=== PATIENT | male | born 1960 | race Caucasian/White ===

== ENCOUNTER 2017-06-21 17:46 | Emergency (ER) | payer MEDICARE, OTHER ==
[~2017-06-21] VITALS: Ht 172.7 cm; Wt 93.0 kg
[~2017-06-21 17:46] MED LIST: BUSP5TAB3 PO; CHLO100T2 PO; CITA10TA4 PO; DEPA500T3 PO; GLYB1TAB51 PO; LORT5TAB PO; METF-324 PO; PRIN10TA PO; RISP2TAB2 PO; SIMV20TA PO; TOPR50TA PO; TRAZ50TA4 PO; TYLE500T PO; WAL-10TA2 PO
[2017-06-21 17:51] VITALS: BP 156/93; PULSE 100; RESP 20; TEMP 98.2; O2SAT 100
--- NOTE | 2017-06-21 20:45 | PD ---
HPI Chief Complaint: Psychiatric Symptoms Time Seen by Provider: 19:45 Travel History International Travel<30 days: No Contact w/Intl Traveler<30days: No Traveled to known affect area: No History of Present Illness HPI Patient is a 56-year-old male brought in by his caregiver for psychiatric evaluation. Per her report he has been treated, verbally and physically aggressive towards staff. He has a history of the explosive behaviors but it has been exacerbated for the last 2 days. She states that he we'll attempt to self-harm and eat nonfood items. He has been using foul language towards -Americans staff members. Behavior escalated yesterday when he did not appropriately asked to use the phone and was given a 5 minute delay, he began to then get physically aggressive. She reports that he has a history of schizophrenia, bipolar disorder, mental retardation, anxiety, hyperlipidemia and hypertension. She reports that he has been compliant with medications. She states that his physician wanted him Castano acted yesterday but staff failed to do so so she brought him in today. He Has no physical complaints at this time. [facility]LY [facility] Past Medical History ADD: Yes Bipolar Disorder: Yes Anxiety: Yes High Cholesterol: Yes Diabetes: Yes Diminished Hearing: No Hypertension: Yes Psychiatric: Yes (DEVELOPMENTAL DELAY) Schizophrenia: Yes Past Surgical History Abdominal Surgery: Yes (HERNIA) Eye Surgery: Yes (RIGHT EYE CATARACT) Social History Alcohol Use: No Tobacco Use: No Substance Use: No Allergies-Medications (Allergen,Severity, Reaction): Coded Allergies: No Known Allergies (Verified Adverse Reaction, Unknown, 06/21/17) Reported Meds & Prescriptions Reported Meds & Active Scripts Active Reported Bisacodyl EC (Bisacodyl) 5 Mg Tabec 5 Mg PO DAILY PRN Lorazepam 1 Mg Tab 1 Mg PO DAILY PRN Seroquel (Quetiapine Fumarate) 100 Mg Tab 100 Mg PO BID Clonidine (Clonidine HCl) 0.1 Mg Tab 0.1 Mg PO BID Depakote ER (Divalproex Sodium) 500 Mg Kelin 500 Mg PO BID Chlorpromazine (Chlorpromazine HCl) 200 Mg Tab 200 Mg PO BID PRN Buspirone (Buspirone HCl) 30 Mg Tab 30 Mg PO TID Risperidone 4 Mg Tab 4 Mg PO TID Claritin (Loratadine) 10 Mg Cap 10 Mg PO DAILYHS Simvastatin 20 Mg Tab 20 Mg PO DAILYHS Magnesium Citrate Liq (Magnesium Citrate) 300 Ml Liq 150 Ml PO DIRECTED Fransico Perry Cough & Chest Liquid (Guaifenesin/Dextromethorphan) 100 Mg-10 Mg/5 Ml Syrup 10 Ml PO Q6HR Milk of Magnesia Liq (Magnesium Hydroxide) 400 Mg/5 Ml Susp Ml PO Lisinopril 5 Mg Tab 5 Mg PO DAILY Review of Systems Except as stated in HPI: all other systems reviewed are Neg Psychiatric: Positive: Mood Disorder Physical Exam Narrative GENERAL: Well-developed, well-nourished, alert male. Resting comfortably in no acute distress. SKIN: Warm and dry. HEAD: Atraumatic. Normocephalic. EYES: Pupils equal and round. No scleral icterus. No injection or drainage. ENT: No nasal bleeding or discharge. Mucous membranes pink and moist. NECK: Trachea midline. No JVD. CARDIOVASCULAR: Regular rate and rhythm. RESPIRATORY: No accessory muscle use. Clear to auscultation. Breath sounds equal bilaterally. GASTROINTESTINAL: Abdomen soft, non-tender, nondistended. Hepatic and splenic margins not palpable. MUSCULOSKELETAL: Extremities without clubbing, cyanosis, or edema. No obvious deformities. NEUROLOGICAL: Awake and alert. No obvious cranial nerve deficits. Motor grossly within normal limits. Five out of 5 muscle strength in the arms and legs. Normal speech. PSYCHIATRIC: Appropriate mood and affect. Data Data Last Documented VS Vital Signs Date Time Temp Pulse Resp B/P (MAP) Pulse Ox O2 Delivery O2 Flow Rate FiO2 06/21/17 17:51 98.2 100 20 156/93 (114) 100 Orders Orders Complete Blood Count With Diff (06/21/17 20:02) Comprehensive Metabolic Panel (06/21/17 20:02) Thyroid Stimulating Hormone (06/21/17 20:02) Urinalysis - C+S If Indicated (06/21/17 20:02) Psych Screen (06/21/17 20:02) Drug Screen, Random Urine (06/21/17 20:02) Valproic Acid (Depakene) (06/21/17 21:45) Risperidone (Risperdal) (06/21/17 22:00) Lorazepam (Ativan) (06/21/17 22:00) Quetiapine (Seroquel) (06/21/17 22:00) Divalproex Er (Depakote Er) (06/21/17 22:00) Labs Laboratory Tests Test 06/21/17 20:53 White Blood Count 5.1 TH/MM3 Red Blood Count 3.80 MIL/MM3 Hemoglobin 12.8 GM/DL Hematocrit 37.3 % Mean Corpuscular Volume 97.9 FL Mean Corpuscular Hemoglobin 33.7 PG Mean Corpuscular Hemoglobin Concent 34.4 % Red Cell Distribution Width 12.0 % Platelet Count 119 TH/MM3 Mean Platelet Volume 8.3 FL Neutrophils (%) (Auto) 51.3 % Lymphocytes (%) (Auto) 33.9 % Monocytes (%) (Auto) 13.7 % Eosinophils (%) (Auto) 0.7 % Basophils (%) (Auto) 0.4 % Neutrophils # (Auto) 2.6 TH/MM3 Lymphocytes # (Auto) 1.7 TH/MM3 Monocytes # (Auto) 0.7 TH/MM3 Eosinophils # (Auto) 0.0 TH/MM3 Basophils # (Auto) 0.0 TH/MM3 CBC Comment DIFF FINAL Differential Comment Urine Color YELLOW Urine Turbidity CLEAR Urine pH 6.0 Urine Specific [place] 1.017 Urine Protein TRACE mg/dL Urine Glucose (UA) NEG mg/dL Urine Ketones NEG mg/dL Urine Occult Blood NEG Urine Nitrite NEG Urine Bilirubin NEG Urine Urobilinogen LESS THAN 2.0 MG/DL Urine Leukocyte Esterase NEG Urine RBC LESS THAN 1 /hpf Urine WBC LESS THAN 1 /hpf Urine Mucus FEW /lpf Microscopic Urinalysis Comment CULT NOT INDICATED Blood Urea Nitrogen 22 MG/DL Creatinine 1.07 MG/DL Random Glucose 106 MG/DL Total Protein 6.6 GM/DL Albumin 3.1 GM/DL Calcium Level 8.7 MG/DL Alkaline Phosphatase 85 U/L Aspartate Amino Transf (AST/SGOT) 26 U/L Alanine Aminotransferase (ALT/SGPT) 31 U/L Total Bilirubin 0.3 MG/DL Sodium Level 138 MEQ/L Potassium Level 3.9 MEQ/L Chloride Level 105 MEQ/L Carbon Dioxide Level 26.9 MEQ/L Anion Gap 6 MEQ/L Estimat Glomerular Filtration Rate 71 ML/MIN Thyroid Stimulating Hormone 3rd Gen 6.510 uIU/ML Urine Opiates Screen NEG Urine Barbiturates Screen NEG Urine Amphetamines Screen NEG Urine Benzodiazepines Screen NEG Urine Cocaine Screen NEG Urine Cannabinoids Screen NEG [facility] Medical Decision Making Medical Screen Exam Complete: Yes Emergency Medical Condition: Yes Interpretation(s) Laboratory Tests Test 06/21/17 20:53 White Blood Count 5.1 TH/MM3 Red Blood Count 3.80 MIL/MM3 Hemoglobin 12.8 GM/DL Hematocrit 37.3 % Mean Corpuscular Volume 97.9 FL Mean Corpuscular Hemoglobin 33.7 PG Mean Corpuscular Hemoglobin Concent 34.4 % Red Cell Distribution Width 12.0 % Platelet Count 119 TH/MM3 Mean Platelet Volume 8.3 FL Neutrophils (%) (Auto) 51.3 % Lymphocytes (%) (Auto) 33.9 % Monocytes (%) (Auto) 13.7 % Eosinophils (%) (Auto) 0.7 % Basophils (%) (Auto) 0.4 % Neutrophils # (Auto) 2.6 TH/MM3 Lymphocytes # (Auto) 1.7 TH/MM3 Monocytes # (Auto) 0.7 TH/MM3 Eosinophils # (Auto) 0.0 TH/MM3 Basophils # (Auto) 0.0 TH/MM3 CBC Comment DIFF FINAL Differential Comment Urine Color YELLOW Urine Turbidity CLEAR Urine pH 6.0 Urine Specific [place] 1.017 Urine Protein TRACE mg/dL Urine Glucose (UA) NEG mg/dL Urine Ketones NEG mg/dL Urine Occult Blood NEG Urine Nitrite NEG Urine Bilirubin NEG Urine Urobilinogen LESS THAN 2.0 MG/DL Urine Leukocyte Esterase NEG Urine RBC LESS THAN 1 /hpf Urine WBC LESS THAN 1 /hpf Urine Mucus FEW /lpf Microscopic Urinalysis Comment CULT NOT INDICATED Blood Urea Nitrogen 22 MG/DL Creatinine 1.07 MG/DL Random Glucose 106 MG/DL Total Protein 6.6 GM/DL Albumin 3.1 GM/DL Calcium Level 8.7 MG/DL Alkaline Phosphatase 85 U/L Aspartate Amino Transf (AST/SGOT) 26 U/L Alanine Aminotransferase (ALT/SGPT) 31 U/L Total Bilirubin 0.3 MG/DL Sodium Level 138 MEQ/L Potassium Level 3.9 MEQ/L Chloride Level 105 MEQ/L Carbon Dioxide Level 26.9 MEQ/L Anion Gap 6 MEQ/L Estimat Glomerular Filtration Rate 71 ML/MIN Thyroid Stimulating Hormone 3rd Gen 6.510 uIU/ML Urine Opiates Screen NEG Urine Barbiturates Screen NEG Urine Amphetamines Screen NEG Urine Benzodiazepines Screen NEG Urine Cocaine Screen NEG Urine Cannabinoids Screen NEG Vital Signs Date Time Temp Pulse Resp B/P (MAP) Pulse Ox O2 Delivery O2 Flow Rate FiO2 2/1/18 17:51 98.2 100 20 156/93 114) 100 Differential Diagnosis Behavior disturbance versus metabolic abnormality versus UTI versus Narrative Course Patient is a 56-year-old male brought in by caregiver for psychiatric evaluation /medication adjustment. His vital signs are stable, he asks repetitive questions and needs to be redirected behaviorally. Labs and psych screening ordered and pending. Due to caregivers report of aggressive behavior and potential threat of self-harm a Castano act was initiated by my attending physician. Labs reviewed, CBC with a mild anemia, chemistry is unremarkable, TSH is elevated at 6.5., Urine drug screen is negative, urinalysis is not consistent with a urinary tract infection. Patient is medically cleared for psychiatric evaluation at this time. He should have thyroid level reassessed as outpatient. Nighttime medications ordered as previously prescribed per patient's MAR Diagnosis Primary Impression: Medical clearance for psychiatric admission Additional Impression: Abnormal thyroid blood test Condition: Stable Kylie Langford Jun 21, 2017 20:45
[2017-06-21 21:05] LABS: AUTOMATED NEUTROPHIL # 2.6 TH/MM3 (1.8-7.7); BASOPHIL % 0.4 % (0.0-2.0); EOSINOPHIL % 0.7 % (0.0-4.0); HEMATOCRIT 37.3 % (39.0-51.0); HEMOGLOBIN 12.8 GM/DL (13.0-17.0); LYMPH % 33.9 % (9.0-44.0); LYMPHOCYTE # 1.7 TH/MM3 (1.0-4.8); MEAN CELL VOLUME 97.9 FL (80.0-100.0); MEAN CORPUSCULAR HEMOGLOBIN 33.7 PG (27.0-34.0); MEAN CORPUSCULAR HGB CONC 34.4 % (32.0-36.0); MEAN PLATELET VOLUME 8.3 FL (7.0-11.0); MONO % 13.7 % (0.0-8.0); MONOCYTE # 0.7 TH/MM3 (0-0.9); NEUT % 51.3 % (16.0-70.0); PLATELET COUNT 119 TH/MM3 (150-450); WHITE BLOOD COUNT 5.1 TH/MM3 (4.0-11.0)
[2017-06-21 21:06] LABS: BILIRUBIN, URINE NEG (NEG); BLOOD, URINE NEG (NEG); GLUCOSE,URINE NEG (NEG); KETONE, URINE NEG (NEG); MUCUS URINE FEW /lpf (OCC); NITRITE,URINE NEG (NEG); URINE COLOR YELLOW (YELLW/STRAW); URINE LEUKOCYTE ESTERASE NEG (NEG)
[2017-06-21] MEDS ORDERED: CLAR10CA3 PO (21:22)
[2017-06-21] MEDS ORDERED: [UNRECOGNIZED DRUG - CODE] PO (21:22)
[2017-06-21] MEDS ORDERED: LORA1TAB12 PO (21:22)
[2017-06-21] MEDS ORDERED: CHLO200T5 PO (21:22)
[2017-06-21] MEDS ORDERED: BUSP30TA PO (21:22)
[2017-06-21] MEDS ORDERED: RISP4TAB2 PO (21:22)
[2017-06-21] MEDS ORDERED: LISI-519 PO (21:22)
[2017-06-21] MEDS ORDERED: DEPA500T3 PO (21:22)
[2017-06-21] MEDS ORDERED: SERO100T PO (21:22)
[2017-06-21] MEDS ORDERED: FLEE5TAB PO (21:22)
[2017-06-21] MEDS ORDERED: MILKSUS PO (21:22)
[2017-06-21] MEDS ORDERED: CLON0.1T PO (21:22)
[2017-06-21] MEDS ORDERED: SIMV20TA PO (21:22)
[2017-06-21] MEDS ORDERED: MAGNSOL2 PO (21:22)
[2017-06-21 21:29] LABS: ALBUMIN 3.1 GM/DL (3.4-5.0); AST (GOT) 26 U/L (15-37); BICARBONATE 26.9 MEQ/L (21.0-32.0); BLOOD UREA NITROGEN 22 MG/DL (7-18); CALCIUM 8.7 MG/DL (8.5-10.1); CHLORIDE 105 MEQ/L (98-107); CREATININE 1.07 MG/DL (0.60-1.30); GLOMERULAR FILTRATION RATE 71 ML/MIN (>89); GLUCOSE,RANDOM 106 MG/DL (74-106); SODIUM (NA) 138 MEQ/L (136-145)
[2017-06-21 21:30] LABS: ALT (GPT) 31 U/L (12-78)
[2017-06-21 21:40] LABS: ALKALINE PHOSPHATASE 85 U/L (45-117); TOTAL BILIRUBIN ADULT 0.3 MG/DL (0.2-1.0); TOTAL PROTEIN 6.6 GM/DL (6.4-8.2)
[2017-06-21] MEDS ORDERED: QUEtiapine FUMARATE 100 MG TAB PO ONE (22:00)
[2017-06-21] MEDS ORDERED: LORazepam 1 MG TAB PO ONE (22:00)
[2017-06-21] MEDS ORDERED: risperiDONE 1 MG TAB PO ONE (22:00)
[2017-06-21] MEDS ORDERED: DIVALPROEX SODIUM E.R. 500 MG TAB PO ONE (22:00)
[2017-06-22 01:57] VITALS: BP 148/74; PULSE 96; RESP 18; O2SAT 98
[2017-06-22 06:34] VITALS: BP 126/77; PULSE 99; RESP 18; O2SAT 98
--- NOTE | 2017-06-22 08:44 | PD ---
Physical Exam Date Seen by Provider: Jun 22, 2017 Time Seen by Provider: 08:42 Narrative 56-year-old male previously medically cleared for psychiatric evaluation, has been seen by Dr. Carrera and cleared for psychiatric discharge. Patient is to return to his correction. He remains medically stable at this time patient should follow-up as per psychiatric plan. Please see note. Data Data Last Documented VS Vital Signs Date Time Temp Pulse Resp B/P (MAP) Pulse Ox O2 Delivery O2 Flow Rate FiO2 06/22/17 06:34 99 18 126/77 (93) 98 Room Air 06/21/17 17:51 98.2 Orders Orders Complete Blood Count With Diff (06/21/17 20:02) Comprehensive Metabolic Panel (06/21/17 20:02) Thyroid Stimulating Hormone (06/21/17 20:02) Urinalysis - C+S If Indicated (06/21/17 20:02) Psych Screen (06/21/17 20:02) Drug Screen, Random Urine (06/21/17 20:02) Valproic Acid (Depakene) (06/21/17 21:45) Risperidone (Risperdal) (06/21/17 22:00) Lorazepam (Ativan) (06/21/17 22:00) Quetiapine (Seroquel) (06/21/17 22:00) Divalproex Er (Depakote Er) (06/21/17 22:00) Diet Regular Basic (06/22/17 Breakfast) Labs Laboratory Tests Test 06/21/17 20:53 White Blood Count 5.1 TH/MM3 Red Blood Count 3.80 MIL/MM3 Hemoglobin 12.8 GM/DL Hematocrit 37.3 % Mean Corpuscular Volume 97.9 FL Mean Corpuscular Hemoglobin 33.7 PG Mean Corpuscular Hemoglobin Concent 34.4 % Red Cell Distribution Width 12.0 % Platelet Count 119 TH/MM3 Mean Platelet Volume 8.3 FL Neutrophils (%) (Auto) 51.3 % Lymphocytes (%) (Auto) 33.9 % Monocytes (%) (Auto) 13.7 % Eosinophils (%) (Auto) 0.7 % Basophils (%) (Auto) 0.4 % Neutrophils # (Auto) 2.6 TH/MM3 Lymphocytes # (Auto) 1.7 TH/MM3 Monocytes # (Auto) 0.7 TH/MM3 Eosinophils # (Auto) 0.0 TH/MM3 Basophils # (Auto) 0.0 TH/MM3 CBC Comment DIFF FINAL Differential Comment Urine Color YELLOW Urine Turbidity CLEAR Urine pH 6.0 Urine Specific [place] 1.017 Urine Protein TRACE mg/dL Urine Glucose (UA) NEG mg/dL Urine Ketones NEG mg/dL Urine Occult Blood NEG Urine Nitrite NEG Urine Bilirubin NEG Urine Urobilinogen LESS THAN 2.0 MG/DL Urine Leukocyte Esterase NEG Urine RBC LESS THAN 1 /hpf Urine WBC LESS THAN 1 /hpf Urine Mucus FEW /lpf Microscopic Urinalysis Comment CULT NOT INDICATED Blood Urea Nitrogen 22 MG/DL Creatinine 1.07 MG/DL Random Glucose 106 MG/DL Total Protein 6.6 GM/DL Albumin 3.1 GM/DL Calcium Level 8.7 MG/DL Alkaline Phosphatase 85 U/L Aspartate Amino Transf (AST/SGOT) 26 U/L Alanine Aminotransferase (ALT/SGPT) 31 U/L Total Bilirubin 0.3 MG/DL Sodium Level 138 MEQ/L Potassium Level 3.9 MEQ/L Chloride Level 105 MEQ/L Carbon Dioxide Level 26.9 MEQ/L Anion Gap 6 MEQ/L Estimat Glomerular Filtration Rate 71 ML/MIN Thyroid Stimulating Hormone 3rd Gen 6.510 uIU/ML Urine Opiates Screen NEG Urine Barbiturates Screen NEG Valproic Acid (Depakene) Level 87 MCG/ML Urine Amphetamines Screen NEG Urine Benzodiazepines Screen NEG Urine Cocaine Screen NEG Urine Cannabinoids Screen NEG MDM Medical Record Reviewed: Yes Supervised Visit with MANDA: Yes Narrative Course 56-year-old male previously medically cleared for psychiatric evaluation, has been seen by Dr. Carrera and cleared for psychiatric discharge. Patient is to return to his correction. He remains medically stable at this time patient should follow-up as per psychiatric plan. Please see note. Diagnosis Primary Impression: Medical clearance for psychiatric admission Additional Impression: Abnormal thyroid blood test Patient Instructions: General Instructions Disposition: DISCHARGE HOME Condition: Stable Mehul Russo Jun 22, 2017 08:44
--- NOTE | 2017-06-22 12:12 | PD.PSY.CON ---
Provisional Diagnosis Admission Date [place] I. Mild to moderate intellectual disability, poor impulse control disorder, adjustment disorder with disturbance of conduct [place] II. Deferred [place] III. no medical history History of Present Illness Service Psychiatry Consult Requested By ER Reason for Consult [facility] Primary Care Physician Non-Staff HPI The patient is a [id number] man, domiciled in a [facility], single, unemployed, with psychiatric history of intellectual disability, schizophrenia, bipolar disorder, poor impulse control, aggressive behavior, he has an established outpatient care in [facility], he is on Depakote 500 mg twice a day, quetiapine, Risperdal, medical history of hypertension, who was brought in by his caregiver for psychiatric evaluation. Per her report he has been treated, verbally and physically aggressive towards staff. He has a history of the explosive behaviors but it has been exacerbated for the last 2 days. She states that he we'll attempt to self-harm and eat nonfood items. He has been using foul language towards -Americans staff members. Behavior escalated yesterday when he did not appropriately asked to use the phone and was given a 5 minute delay, he began to then get physically aggressive. On psychiatric evaluation today the patient is superficially cooperative, intrusive and repetitive. Patient is repeatedly state in that he wants to be discharged, that he regrets the action the brought into the hospital, that he will never would do that again. Patient says that he was confused, and the staff was pushing him. Right now he reports good mood, he denies suicidal and homicidal ideation, he denies visual and auditory hallucinations. On longitudinal evaluation and observation the patient has been mostly calm, childish, no agitation or aggressive behavior observed. Review of Systems Constitutional: DENIES: Diaphoretic episodes, Fatigue, Fever, Weight gain, Weight loss, Chills, Dizziness, Change in appetite, Night Sweats Endocrine: DENIES: Heat/cold intolerance, Polydipsia, Polyuria, Polyphagia Eyes: DENIES: Blurred vision, Diplopia, Eye inflammation, Eye pain, Vision loss , Photosensitivity, Double Vision Ears, nose, mouth, throat: DENIES: Tinnitus, Hearing loss, Vertigo, Nasal discharge, Oral lesions, Throat pain, Hoarseness, Ear Pain, Running Nose, Epistaxis, Sinus Pain, Toothache, Odynophagia Cardiovascular: DENIES: Chest pain, Palpitations, Syncope, Dyspnea on Exertion , PND, Lower Extremity Edema, Orthopnea, Claudication Gastrointestinal: DENIES: Abdominal pain, Black stools, Bloody stools, Constipation, Diarrhea, Nausea, Vomiting, Difficulty Swallowing, Anorexia Genitourinary: DENIES: Sexual dysfunction, Urinary frequency, Urinary incontinence, Urgency, Hematuria, Dysuria, Nocturia, Penile Discharge, Testicular Pain, Testicular Swelling Musculoskeletal: DENIES: Joint pain, Muscle aches, Stiffness, Joint Swelling, Back pain, Neck pain Integumentary: DENIES: Abnormal pigmentation, Nail changes, Pruritus, Rash Hematologic/lymphatic: DENIES: Bruising, Lymphadenopathy Immunologic/allergic: DENIES: Eczema, Urticaria Neurologic: DENIES: Abnormal gait, Headache, Localized weakness, Paresthesias, Seizures, Speech Problems, Tremor, Poor Balance Psychiatric: DENIES: Anxiety, Confusion, Mood changes, Depression, Hallucinations, Agitation, Suicidal Ideation, Homicidal Ideation, Delusions Past Family Social History Coded Allergies: No Known Allergies (Verified Adverse Reaction, Unknown, 06/21/17) Reported Medications Bisacodyl DR (Bisacodyl EC) 5 Mg Tabec, 5 MG PO DAILY Y for CONSTIPATION, TAB 0 Refills 06/21/17 Lorazepam (Lorazepam) 1 Mg Tab, 1 MG PO DAILY Y for ANXIETY, TAB 0 Refills 06/21/17 Quetiapine (Seroquel) 100 Mg Tab, 100 MG PO BID, #60 TAB 0 Refills 06/21/17 Clonidine (Clonidine) 0.1 Mg Tab, 0.1 MG PO BID for Blood Pressure Management, # 60 TAB 0 Refills 06/21/17 Divalproex ER (Depakote ER) 500 Mg Kelin, 500 MG PO BID for Control Seizures, # 30 TAB 0 Refills 06/21/17 Chlorpromazine (Chlorpromazine) 200 Mg Tab, 200 MG PO BID Y for NAUSEA OR VOMITING, TAB 0 Refills 06/21/17 Buspirone (Buspirone) 30 Mg Tab, 30 MG PO TID for Anxiety, TAB 0 Refills 06/21/17 Risperidone (Risperidone) 4 Mg Tab, 4 MG PO TID, #60 TAB 0 Refills 06/21/17 Loratadine (Claritin) 10 Mg Cap, 10 MG PO DAILYhs for Allergy Management, CAP 0 Refills 06/21/17 Simvastatin (Simvastatin) 20 Mg Tab, 20 MG PO DAILYhs for Cholesterol Management , #30 TAB 0 Refills 06/21/17 Magnesium Citrate Liq (Magnesium Citrate Liq) 300 Ml Liq, 150 ML PO DIRECTED , BOTTLE 0 Refills 06/21/17 Guaifenesin/Dextromethorphan (Tussin Dm Cough & Chest Liquid) 100 Mg-10 Mg/5 Ml Syrup, 10 ML PO Q6HR 06/21/17 Magnesium Hydroxide Liq (Milk of Magnesia Liq) 400 Mg/5 Ml Susp, ML PO, #1 BOTTLE 0 Refills 06/21/17 Lisinopril (Lisinopril) 5 Mg Tab, 5 MG PO DAILY for Blood Pressure Management, # 30 TAB 0 Refills 06/21/17 Family Psych History No family psychiatric history Social History Patient was born and raised in [place], he lives in an [facility] in [place], his single, and poor Physical Exam Vital Signs Vital Signs Date Time Temp Pulse Resp B/P (MAP) Pulse Ox O2 Delivery O2 Flow Rate FiO2 06/22/17 09:58 06/22/17 06:34 99 18 98 Room Air 06/21/17 17:51 98.2 Lab Results Test 06/21/17 20:53 White Blood Count 5.1 TH/MM3 Red Blood Count 3.80 MIL/MM3 Hemoglobin 12.8 GM/DL Hematocrit 37.3 % Mean Corpuscular Volume 97.9 FL Mean Corpuscular Hemoglobin 33.7 PG Mean Corpuscular Hemoglobin Concent 34.4 % Red Cell Distribution Width 12.0 % Platelet Count 119 TH/MM3 Mean Platelet Volume 8.3 FL Neutrophils (%) (Auto) 51.3 % Lymphocytes (%) (Auto) 33.9 % Monocytes (%) (Auto) 13.7 % Eosinophils (%) (Auto) 0.7 % Basophils (%) (Auto) 0.4 % Neutrophils # (Auto) 2.6 TH/MM3 Lymphocytes # (Auto) 1.7 TH/MM3 Monocytes # (Auto) 0.7 TH/MM3 Eosinophils # (Auto) 0.0 TH/MM3 Basophils # (Auto) 0.0 TH/MM3 CBC Comment DIFF FINAL Differential Comment Urine Color YELLOW Urine Turbidity CLEAR Urine pH 6.0 Urine Specific [place] 1.017 Urine Protein TRACE mg/dL Urine Glucose (UA) NEG mg/dL Urine Ketones NEG mg/dL Urine Occult Blood NEG Urine Nitrite NEG Urine Bilirubin NEG Urine Urobilinogen LESS THAN 2.0 MG/DL Urine Leukocyte Esterase NEG Urine RBC LESS THAN 1 /hpf Urine WBC LESS THAN 1 /hpf Urine Mucus FEW /lpf Microscopic Urinalysis Comment CULT NOT INDICATED Blood Urea Nitrogen 22 MG/DL Creatinine 1.07 MG/DL Random Glucose 106 MG/DL Total Protein 6.6 GM/DL Albumin 3.1 GM/DL Calcium Level 8.7 MG/DL Alkaline Phosphatase 85 U/L Aspartate Amino Transf (AST/SGOT) 26 U/L Alanine Aminotransferase (ALT/SGPT) 31 U/L Total Bilirubin 0.3 MG/DL Sodium Level 138 MEQ/L Potassium Level 3.9 MEQ/L Chloride Level 105 MEQ/L Carbon Dioxide Level 26.9 MEQ/L Anion Gap 6 MEQ/L Estimat Glomerular Filtration Rate 71 ML/MIN Thyroid Stimulating Hormone 3rd Gen 6.510 uIU/ML Urine Opiates Screen NEG Urine Barbiturates Screen NEG Valproic Acid (Depakene) Level 87 MCG/ML Urine Amphetamines Screen NEG Urine Benzodiazepines Screen NEG Urine Cocaine Screen NEG Urine Cannabinoids Screen NEG Mental Status Examination Appearance: Appropriate Consciousness: Alert Orientation: x4 Motor Activity: Normal gait Speech: Unremarkable Language: Adequate Fund of Knowledge: Adequate Attention and Concentration: Adequate Memory: Unremarkable Mood: Appropriate Affect: Appropriate Thought Process & Associations: Intact Thought Content: Appropriate, Other (concrete) Hallucination Type: None Delusion Type: None Suicidal Ideation: No Suicidal Plan: No Suicidal Intention: No Homicidal Ideation: No Homicidal Plan: No Homicidal Intention: No Insight: Fair Judgment: Impulsive Assessment & Plan Problem List: (1) Adjustment disorder with disturbance of conduct ICD Codes: F43.24 - Adjustment disorder with disturbance of conduct Assessment & Plan: On psychiatric evaluation today the patient has a concrete, black or white thought processes, he is kind of intrusive and repetitive, but he denies depression, he denies anxiety, he denies liset and psychosis. He denies suicidal and homicidal ideation. No agitation, psychosis, aggressive behavior observed in longitudinal observation. Patient has a baseline intellectual dysfunction, poor impulse control and impaired ability gratification delay is suspected. He does not meet criteria for involuntary psychiatric admission. I spoke personally with the it programmer analyst of his residential facility, and I recommended that his current psychotropic regimen needs to be revised by outpatient psychiatric care management associate. Continue current psychotropic regimen at the moment. Castano act will be lifted. Assessment & Plan Estimated LOS: days Jose Temple MD Jun 22, 2017 12:11
== END 2017-06-22 10:13 | disposition home or self-care (01) ==
LOC: NEPD 17:46 → NEPJ 06-22 10:13
DX: R94.6 Abnormal results of thyroid function studies (principal); F39 Unspecified mood [affective] disorder; F20.9 Schizophrenia, unspecified; F31.9 Bipolar disorder, unspecified; F79 Unspecified intellectual disabilities; F41.9 Anxiety disorder, unspecified; E78.5 Hyperlipidemia, unspecified; I10 Essential (primary) hypertension; Z79.899 Other long term (current) drug therapy
CPT/HCPCS: 80053; 80164; 80307; 81001; 84443; 85025; 99283

== ENCOUNTER 2017-07-07 13:28 | Emergency (ER) | payer MEDICARE, OTHER ==
[~2017-07-07] VITALS: Ht 175.3 cm; Wt 95.0 kg
[~2017-07-07 13:28] MED LIST changes: +BUSP30TA PO; -BUSP5TAB3 PO; -CHLO100T2 PO; +CHLO200T5 PO; -CITA10TA4 PO; +CLAR10CA3 PO; +CLON0.1T PO; +FLEE5TAB PO; -GLYB1TAB51 PO; +LISI-519 PO; +LORA1TAB12 PO; -LORT5TAB PO; +MAGNSOL2 PO; -METF-324 PO; +MILKSUS PO; -PRIN10TA PO; -RISP2TAB2 PO; +RISP4TAB2 PO; +SERO100T PO; -TOPR50TA PO; -TRAZ50TA4 PO; -TYLE500T PO; -WAL-10TA2 PO; +[UNRECOGNIZED DRUG - CODE] PO
[2017-07-07 13:34] VITALS: BP_SYST 167; BP_SYST 67; BP_DIAS 44; BP_DIAS 84; PULSE 107; RESP 24; TEMP 98.2; O2SAT 97
[2017-07-07 17:00] VITALS: RESP 16; O2SAT 98
--- NOTE | 2017-07-07 17:02 | PD ---
HPI Chief Complaint: Fall Time Seen by Provider: 16:40 Travel History International Travel<30 days: No Contact w/Intl Traveler<30days: No Traveled to known affect area: No History of Present Illness HPI 56-year-old male with history of schizophrenia, hypertension, hyperlipidemia, diabetes mellitus presents emergency department for evaluation of multiple self- inflicted falls. Associate Team Physician provides most of the history. States that he has been throwing himself onto the floor and hitting his head multiple times at his prison. Current caretakers states that he has been doing this for approximately 2 weeks. States that he has intentionally harm himself multiple times previously because his "family does not visit him". States that whenever he is admitted, his family visits him which is why she suspects that this is the reason for the self-inflicted trauma. Patient does have a "home doc" that frequents the home. Denies any illicit drugs, alcohol, and prescribed medications. Patient denies suicidal homicidal ideations. Associate Team Physician would like a psych consult and imaging studies to rule out disease process. PFSH Past Medical History ADD: Yes Bipolar Disorder: Yes Anxiety: Yes Cardiovascular Problems: Yes High Cholesterol: Yes Developmental Delay: Yes Diabetes: Yes Diminished Hearing: No Hypertension: Yes Psychiatric: Yes (DEVELOPMENTAL DELAY/agressive/) Schizophrenia: Yes Past Surgical History Abdominal Surgery: Yes (HERNIA) Eye Surgery: Yes (RIGHT EYE CATARACT) Social History Alcohol Use: No Tobacco Use: No Substance Use: No Allergies-Medications (Allergen,Severity, Reaction): Coded Allergies: No Known Allergies (Verified Allergy, Unknown, 07/07/17) Reported Meds & Prescriptions Reported Meds & Active Scripts Active Reported Bisacodyl EC (Bisacodyl) 5 Mg Tabec 5 Mg PO DAILY PRN Lorazepam 1 Mg Tab 1 Mg PO DAILY PRN Seroquel (Quetiapine Fumarate) 100 Mg Tab 100 Mg PO BID Clonidine (Clonidine HCl) 0.1 Mg Tab 0.1 Mg PO BID Depakote ER (Divalproex Sodium) 500 Mg Kelin 500 Mg PO BID Chlorpromazine (Chlorpromazine HCl) 200 Mg Tab 200 Mg PO BID PRN Buspirone (Buspirone HCl) 30 Mg Tab 30 Mg PO TID Risperidone 4 Mg Tab 4 Mg PO TID Claritin (Loratadine) 10 Mg Cap 10 Mg PO DAILYHS Simvastatin 20 Mg Tab 20 Mg PO DAILYHS Lisinopril 5 Mg Tab 5 Mg PO DAILY Review of Systems Except as stated in HPI: all other systems reviewed are Neg Physical Exam Narrative GENERAL: Well-developed well-nourished in no apparent distress, resting comfortably in bed, very talkative SKIN: Focused skin assessment warm/dry. HEAD: Hematoma to the right forehead over brow normocephalic. EYES: Pupils equal and round. No scleral icterus. No injection or drainage. EOMI ENT: No nasal bleeding or discharge. Mucous membranes pink and moist. NECK: Trachea midline. No JVD. No midline tenderness, no step-offs or deformities CARDIOVASCULAR: Regular rate and rhythm. No murmur appreciated. RESPIRATORY: No accessory muscle use. Clear to auscultation. Breath sounds equal bilaterally. GASTROINTESTINAL: Abdomen soft, non-tender, nondistended. BACK: No CVA tenderness. No rash. No point tenderness on palpation of the spine. MUSCULOSKELETAL: No obvious deformities. No clubbing. No cyanosis. No edema. Mild tenderness palpation about the sacrum and paraspinous muscles NEUROLOGICAL: Awake and alert. No obvious cranial nerve deficits. Motor grossly within normal limits. Normal speech. PSYCHIATRIC: Appropriate mood and affect; states he would like to go to the first floor instead of going to the psych holding place Data Data Last Documented VS Vital Signs Date Time Temp Pulse Resp B/P (MAP) Pulse Ox O2 Delivery O2 Flow Rate FiO2 07/07/17 18:10 97.9 76 20 142/67 (92) 98 Nasal Cannula 2.00 Orders Orders Oximetry (07/07/17 16:50) Ecg Monitoring (07/07/17 16:50) Ct Brain W/O Iv Contrast(Rout) (07/07/17 ) Knee, Complete (4vws) (07/07/17 ) Pelvis, Ap Only (Routine) (07/07/17 ) Ct Facial Bones W/O Iv Cont (07/07/17 ) Ed Discharge Order (07/07/17 18:26) MDM Medical Decision Making Medical Screen Exam Complete: Yes Emergency Medical Condition: Yes Differential Diagnosis Suicidal ideations, depression, adjustment disorder, schizophrenia Narrative Course 56-year-old male with history of schizophrenia, hypertension, hyperlipidemia, diabetes mellitus presents emergency department for evaluation of multiple self- inflicted falls. Associate Team Physician provides most of the history. States that he has been throwing himself onto the floor and hitting his head multiple times at his prison. Current caretakers states that he has been doing this for approximately 2 weeks. States that he has intentionally harm himself multiple times previously because his "family does not visit him". States that whenever he is admitted, his family visits him which is why she suspects that this is the reason for the self-inflicted trauma. Patient does have a "home doc" that frequents the home. Denies any illicit drugs, alcohol, and prescribed medications. Patient denies suicidal homicidal ideations. Associate Team Physician would like a psych consult and imaging studies to rule out disease process. Vital signs stable. Physical exam findings consistent with a well-developed well-nourished 56-year- old male in no acute distress. Patient is very talkative. No obvious neuro deficits. Right knee with large large abrasion, mild tenderness palpation of the joint line. Right forehead with a hematoma without crepitus or deformities. I discussed this case with my attending, Dr. Gonzalez who recommended outpatient follow up with psych and evaluation for his repeated episodes of self -inflicted trauma. Imaging studies without acute process. Of note, AP pelvis tumor demonstrates a "12 mm lucent lesion of the right femoral head, neck junction which may very represent a femoral herniation pit. " Patient will be discharged and strongly advised to follow-up with [facility]. Advised to perform a safety evaluation of patient living condition upon return back to the prison. Caregiver understands and will comply. Diagnosis Primary Impression: Head contusion Qualified Codes: S00.03XA - Contusion of scalp, initial encounter Additional Impressions: Contusion of sacrum Qualified Codes: S30.0XXA - Contusion of lower back and pelvis, initial encounter Knee contusion Qualified Codes: S80.01XA - Contusion of right knee, initial encounter Referrals: [facility] Additional Instructions: Recommend follow up with psych. Ensure wound care to right knee to prevent infection. Recommend monitoring to avoid continued trauma. Disposition: 01 DISCHARGE HOME Condition: Stable Mone Del Rosario Jul 07, 2017 17:02
--- NOTE | 2017-07-07 17:51 | RADRPT ---
EXAM DATE/TIME: 07/07/2017 17:07 [facility] COMPARISON: No previous studies available for comparison. INDICATIONS : Right sided pain after fall. MEDICAL HISTORY : None. SURGICAL HISTORY : None. ENCOUNTER: Initial ACUITY: 1 day PAIN SCORE: 4/10 LOCATION: Pelvis. FINDINGS: AP view of the pelvis demonstrates no fracture or dislocation. There is mild joint space narrowing an d small osteophytes at the hip joints bilaterally. There is a 12 mm lucent lesion with sclerotic leanne in at the right femoral head neck junction. It demonstrates a narrow zone of transition. No soft tiss ue abnormality or radiopaque foreign body is identified. CONCLUSION: 1. No acute abnormality is identified on the single view of the pelvis. 2. 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 A 12 mm lucent lesion in the right femoral head neck junction may represent a femoral herniation pit. José Antonio Gibson MD on July 07, 2017 at 17:47 Board Certified Radiologist. This report was verified electronically.
--- NOTE | 2017-07-07 17:58 | RADRPT ---
EXAM DATE/TIME: 07/07/2017 17:08 [facility] COMPARISON: No previous studies available for comparison. INDICATIONS : Right knee pain after fall. MEDICAL HISTORY : None. SURGICAL HISTORY : None. ENCOUNTER: Initial ACUITY: 1 day PAIN SCORE: 7/10 LOCATION: Right knee. FINDINGS: Four view examination of the right knee demonstrates no evidence of fracture or dislocation. Bony mi neralization is normal. The articular surfaces are intact. The suprapatellar soft tissues have a no rmal configuration. CONCLUSION: 1. No acute fracture or dislocation. Kapil Carmichael MD on July 07, 2017 at 17:56 Board Certified Radiologist. This report was verified electronically.
[2017-07-07 18:10] VITALS: BP 142/67; TEMP 97.9
--- NOTE | 2017-07-07 18:12 | RADRPT ---
EXAM DATE/TIME: 07/07/2017 17:49 [facility] COMPARISON: No previous studies available for comparison. INDICATIONS : Trauma; fall. RADIATION DOSE: 36.81 CTDIvol (mGy) MEDICAL HISTORY : Cardiovascular disease. Hypertension. Diabetes mellitus type 2. SURGICAL HISTORY : None. ENCOUNTER: Initial ACUITY: 1 day PAIN SCORE: 5/10 LOCATION: facial TECHNIQUE: Volumetric scanning of the facial bones was performed. Using automated exposure control and adjustme nt of the mA and/or kV according to patient size, radiation dose was kept as low as reasonably achiev able to obtain optimal diagnostic quality images. DICOM format image data is available electronicIntalio y for review and comparison. FINDINGS: ORBITS: The orbital structures are intact. The retroconal structures have a normal configuration. No radiop aque foreign bodies are seen. The lenses are normally located. NASAL BONE: The nasal bones and maxillary spine are intact. ZYGOMATIC ARCHES: Symmetric without evidence of fracture. SINUSES: There is mucoperiosteal thickening within the maxillary antra bilaterally, right greater than left. No air-fluid levels seen. NASAL CAVITY: The nasal septum is intact and midline. The lacrimal ducts are intact. SOFT TISSUES: No radiopaque foreign bodies seen. No soft-tissue swelling is seen. INTRACRANIAL: No acute intracranial abnormality is seen. OTHER: The mandible and pterygoid plates are intact. CONCLUSION: No maxillofacial fracture is identified. José Antonio Gibson MD on July 07, 2017 at 18:07 Board Certified Radiologist. This report was verified electronically.
--- NOTE | 2017-07-07 18:17 | RADRPT ---
EXAM DATE/TIME: 07/07/2017 17:49 [facility] COMPARISON: CT BRAIN W/O CONTRAST, October 06, 2012, 19:04. INDICATIONS : Trauma, fall. RADIATION DOSE: 45.79 CTDIvol (mGy) MEDICAL HISTORY : Hypertension. diabetes SURGICAL HISTORY : None. ENCOUNTER: Initial ACUITY: 1 day PAIN SCALE: 0/10 LOCATION: Bilateral head TECHNIQUE: Multiple contiguous axial images were obtained of the head. Using automated exposure control and adj ustment of the mA and/or kV according to patient size, radiation dose was kept as low as reasonably a chievable to obtain optimal diagnostic quality images. DICOM format image data is available electro nically for review and comparison. FINDINGS: CEREBRUM: Mild diffuse cerebral volume loss. The ventricles are normal for age. No evidence of midline shift, mass lesion, hemorrhage or acute infarction. No extra-axial fluid collections are seen. POSTERIOR FOSSA: The cerebellum and brainstem are intact. The 4th ventricle is midline. The cerebellopontine angle i s unremarkable. EXTRACRANIAL: The visualized portion of the orbits is intact. SKULL: The calvaria is intact. No evidence of skull fracture. CONCLUSION: 1. No acute intracranial abnormality. Kapil Carmichael MD on July 07, 2017 at 18:14 Board Certified Radiologist. This report was verified electronically.
--- NOTE | 2017-07-07 18:20 | PD ---
Data Data Last Documented VS Vital Signs Date Time Temp Pulse Resp B/P (MAP) Pulse Ox O2 Delivery O2 Flow Rate FiO2 07/07/17 17:00 16 98 Room Air 07/07/17 17:00 102 07/07/17 13:34 98.2 Orders Orders Oximetry (07/07/17 16:50) Ecg Monitoring (07/07/17 16:50) Ct Brain W/O Iv Contrast(Rout) (07/07/17 ) Knee, Complete (4vws) (07/07/17 ) Pelvis, Ap Only (Routine) (07/07/17 ) Ct Facial Bones W/O Iv Cont (07/07/17 ) MDM Medical Record Reviewed: Yes Supervised Visit with MANDA: Yes Narrative Course Changes are consistent with behavioral change and the patient is suitable for discharge back to his living facility. Please refer to the mid-level documentation. Vital Signs Date Time Temp Pulse Resp B/P (MAP) Pulse Ox O2 Delivery O2 Flow Rate FiO2 07/07/17 17:00 16 98 Room Air 07/07/17 17:00 102 16 98 Room Air 07/07/17 13:34 98.2 107 24 167/84 (111) 97 Diagnosis Primary Impression: Behavioral change Referrals: [facility] Disposition: 01 DISCHARGE HOME Condition: Stable Brandt Gonzalez MD Jul 07, 2017 18:20
== END 2017-07-07 18:15 | disposition home or self-care (01) ==
LOC: NEPC 13:28
DX: R46.89 Other symptoms and signs involving appearance and behavior (principal); S00.83XA Contusion of other part of head, initial encounter; S30.0XXA Contusion of lower back and pelvis, initial encounter; S80.01XA Contusion of right knee, initial encounter; M16.0 Bilateral primary osteoarthritis of hip; F20.9 Schizophrenia, unspecified; I10 Essential (primary) hypertension; E11.9 Type 2 diabetes mellitus without complications; W19.XXXA Unspecified fall, initial encounter
CPT/HCPCS: 70450; 70486; 72170; 73564; 99284

== ENCOUNTER 2017-07-21 16:20 | Inpatient (IN) | payer MEDICARE, OTHER ==
[~2017-07-21] VITALS: Ht 172.7 cm; Wt 68.0 kg
[~2017-07-21 16:20] MED LIST changes: -MAGNSOL2 PO; -MILKSUS PO; -[UNRECOGNIZED DRUG - CODE] PO
[2017-07-21 16:26] VITALS: BP 102/63; PULSE 108; RESP 20; O2SAT 99
[2017-07-21] MEDS ORDERED: VANCOMYCIN INJ 1,000 MG in SODIUM CHLOR 0.9% 250 ML INJ 250 ML IV STA (17:16)
[2017-07-21] MEDS ORDERED: PIPERACIL-TAZO 4.5 GM PREMIX 100 ML IV STA (17:16)
--- NOTE | 2017-07-21 17:27 | PD ---
HPI Chief Complaint: Skin Problem Time Seen by Provider: 17:10 Travel History International Travel<30 days: No Contact w/Intl Traveler<30days: No Traveled to known affect area: No History of Present Illness HPI 56-year-old male from local group living home secondary to psychiatric issues, presents emergency department with pain and swelling and redness to the right knee. Patient has history of self harm, with abrasions to the head in the past. Patient's caregiver who is here with mom states that they did not notice the infection until this morning. Patient has had no complaints. No reports of fever or chills. Patient is able to ambulate. Patient is a very poor historian due to his psychiatric condition. He has 3 out of 10 pain with palpation. He has no known drug allergies PFSH Past Medical History ADD: Yes Bipolar Disorder: Yes Anxiety: Yes Cardiovascular Problems: Yes High Cholesterol: Yes Developmental Delay: Yes Diabetes: Yes Patient Takes Glucophage: No Diminished Hearing: No Hypertension: Yes Psychiatric: Yes (DEVELOPMENTAL DELAY/agressive/) Schizophrenia: Yes Tetanus Vaccination: Unknown Influenza Vaccination: Yes Past Surgical History Abdominal Surgery: Yes (HERNIA) Eye Surgery: Yes (RIGHT EYE CATARACT) Social History Alcohol Use: No Tobacco Use: No Substance Use: No Allergies-Medications (Allergen,Severity, Reaction): Coded Allergies: No Known Allergies (Verified Allergy, Unknown, 07/21/17) Reported Meds & Prescriptions Reported Meds & Active Scripts Active Reported Bisacodyl EC (Bisacodyl) 5 Mg Tabec 5 Mg PO DAILY PRN Lorazepam 1 Mg Tab 1 Mg PO DAILY PRN Seroquel (Quetiapine Fumarate) 100 Mg Tab 100 Mg PO BID Depakote ER (Divalproex Sodium) 500 Mg Kelin 500 Mg PO BID Chlorpromazine (Chlorpromazine HCl) 200 Mg Tab 200 Mg PO BID PRN Buspirone (Buspirone HCl) 30 Mg Tab 30 Mg PO TID Risperidone 4 Mg Tab 4 Mg PO TID Claritin (Loratadine) 10 Mg Cap 10 Mg PO DAILYHS Simvastatin 20 Mg Tab 20 Mg PO DAILYHS Lisinopril 5 Mg Tab 5 Mg PO DAILY Review of Systems ROS Limitations: Clinical Condition, Poor Historian Except as stated in HPI: all other systems reviewed are Neg General / Constitutional: No: Fever, Chills Eyes: No: Visual changes HENT: No: Headaches Cardiovascular: No: Chest Pain or Discomfort Respiratory: No: Shortness of Breath Gastrointestinal: No: Abdominal Pain Genitourinary: No: Dysuria Musculoskeletal: No: Pain Skin: Positive Lesions, No Rash Neurologic: No: Weakness Psychiatric: No: Depression Endocrine: No: Polydipsia Hematologic/Lymphatic: No: Easy Bruising Physical Exam Narrative GENERAL: Patient appears in no acute distress. He is cooperative. SKIN: Warm and dry. Patient has increased hyperpigmentation on the upper arms and ears due to his psychiatric meds. Patient has a 3 x 2 deep abrasion to the right anterior knee which appears several days old. Patient has a smaller 1 cm diameter abrasion to the right anterior lateral knee. Patient has localized swelling, induration, warmth, and tenderness measuring 25 cm x 15 cm surrounding these abrasions. There is no drainage. HEAD: Atraumatic. Normocephalic. EYES: Pupils equal and round. No scleral icterus. No injection or drainage. ENT: No nasal bleeding or discharge. Mucous membranes pink and moist. Pharynx is clear. Airways patent NECK: Trachea midline. Supple and nontender. CARDIOVASCULAR: Regular rate and rhythm. RESPIRATORY: No accessory muscle use. Clear to auscultation. Breath sounds equal bilaterally. GASTROINTESTINAL: Abdomen soft, non-tender, nondistended. Hepatic and splenic margins not palpable. MUSCULOSKELETAL: Extremities without clubbing, cyanosis, or edema. No obvious deformities. Patient has full range of motion of the right lower extremity, however it appears somewhat swollen. NEUROLOGICAL: Awake and alert. No obvious cranial nerve deficits. Motor grossly within normal limits. Five out of 5 muscle strength in the arms and legs. Normal speech. PSYCHIATRIC: Appropriate mood and affect; insight and judgment normal. Data Data Last Documented VS Vital Signs Date Time Temp Pulse Resp B/P (MAP) Pulse Ox O2 Delivery O2 Flow Rate FiO2 07/21/17 16:26 108 20 102/63 (76) 99 Orders Orders Sepsis Workup Initiated (07/21/17 ) Complete Blood Count With Diff (07/21/17 17:16) Comprehensive Metabolic Panel (07/21/17 17:16) Prothrombin Time / Inr (Pt) (07/21/17 17:16) Act Partial Throm Time (Ptt) (07/21/17 17:16) Lactic Acid Sepsis Protocol (07/21/17 17:16) Urinalysis - C+S If Indicated (07/21/17 17:16) Blood Culture (07/21/17 17:16) Wound Culture And Gram Stain (07/21/17 17:16) Ecg Monitoring (07/21/17 17:16) Iv Access Insert/Monitor (07/21/17 17:16) Oximetry (07/21/17 17:16) Oxygen Administration (07/21/17 17:16) Piperacil-Tazo 4.5 Gm Premix (Zosyn 4.5 (07/21/17 17:16) Vancomycin Inj (Vancomycin Inj) (07/21/17 17:16) Sodium Chlor 0.9% 1000 Ml Inj (Ns 1000 M (07/21/17 17:30) Labs Laboratory Tests Test 07/21/17 17:55 Lactic Acid Level 1.1 mmol/L MDM Medical Decision Making Medical Screen Exam Complete: Yes Emergency Medical Condition: Yes Medical Record Reviewed: Yes Differential Diagnosis Right knee cellulitis. Right knee abrasions. Possible sepsis. Narrative Course Patient appears medically stable at time of exam. Sepsis protocol is initiated with CBC, CMP, lactic acid protocol, and wound culture as well as blood cultures. IV access is obtained the patient is given 4.5 g Zosyn as well as 1000 mg vancomycin IV. Patient is given 1000 mL's normal saline bolus. 1900 hrs., labs are still pending. Patient care is turned over to Dayne Sandoval PA-C who will determine final disposition. Diagnosis Primary Impression: Cellulitis of right knee Additional Impression: Abrasion of knee, right, infected Qualified Codes: S80.211A - Abrasion, right knee, initial encounter; L08.9 - Local infection of the skin and subcutaneous tissue, unspecified Condition: Stable Mehul Russo Jul 21, 2017 17:27
[2017-07-21] MEDS ORDERED: SODIUM CHLOR 0.9% 1000 ML INJ 1,000 ML IV ONE (17:30)
[2017-07-21 19:28] VITALS: BP 160/86; PULSE 90; RESP 16; O2SAT 100
[2017-07-21 19:29] LABS: BASOPHIL % 0.2 % (0.0-2.0); EOSINOPHIL % 0.2 % (0.0-4.0); HEMATOCRIT 29.3 % (39.0-51.0); HEMOGLOBIN 10.1 GM/DL (13.0-17.0); MEAN CELL VOLUME 98.9 FL (80.0-100.0); MEAN CORPUSCULAR HEMOGLOBIN 34.2 PG (27.0-34.0); MEAN CORPUSCULAR HGB CONC 34.5 % (32.0-36.0); MEAN PLATELET VOLUME 7.5 FL (7.0-11.0); MONOCYTE # 1.4 TH/MM3 (0-0.9); NEUT % 67.6 % (16.0-70.0); PLATELET COUNT 158 TH/MM3 (150-450); RED BLOOD COUNT 2.96 MIL/MM3 (4.50-5.90); RED CELL DISTRIBUTION WIDTH 12.5 % (11.6-17.2); WHITE BLOOD COUNT 7.4 TH/MM3 (4.0-11.0)
[2017-07-21 19:37] LABS: INTERNATIONAL NORMALIZED RATIO 1.2 RATIO; PROTHROMBIN TIME - PATIENT 11.8 SEC (9.8-11.6)
[2017-07-21 19:38] LABS: ALT (GPT) 23 U/L (12-78)
[2017-07-21 19:42] LABS: ALBUMIN 2.1 GM/DL (3.4-5.0); AST (GOT) 35 U/L (15-37); BICARBONATE 25.1 MEQ/L (21.0-32.0); BLOOD UREA NITROGEN 27 MG/DL (7-18); CALCIUM 7.5 MG/DL (8.5-10.1); CHLORIDE 106 MEQ/L (98-107); CREATININE 0.94 MG/DL (0.60-1.30); GLOMERULAR FILTRATION RATE 83 ML/MIN (>89); GLUCOSE,RANDOM 109 MG/DL (74-106); SODIUM (NA) 140 MEQ/L (136-145)
[2017-07-21 19:46] LABS: ALKALINE PHOSPHATASE 89 U/L (45-117); TOTAL BILIRUBIN ADULT 0.4 MG/DL (0.2-1.0)
--- NOTE | 2017-07-21 20:43 | PD ---
Physical Exam Date Seen by Provider: Jul 21, 2017 Time Seen by Provider: 20:40 Data Data Last Documented VS Vital Signs Date Time Temp Pulse Resp B/P (MAP) Pulse Ox O2 Delivery O2 Flow Rate FiO2 07/21/17 19:28 90 16 160/86 (110) 100 Room Air Orders Orders Sepsis Workup Initiated (07/21/17 ) Complete Blood Count With Diff (07/21/17 17:16) Comprehensive Metabolic Panel (07/21/17 17:16) Prothrombin Time / Inr (Pt) (07/21/17 17:16) Act Partial Throm Time (Ptt) (07/21/17 17:16) Lactic Acid Sepsis Protocol (07/21/17 17:16) Urinalysis - C+S If Indicated (07/21/17 17:16) Blood Culture (07/21/17 17:16) Wound Culture And Gram Stain (07/21/17 17:16) Ecg Monitoring (07/21/17 17:16) Iv Access Insert/Monitor (07/21/17 17:16) Oximetry (07/21/17 17:16) Oxygen Administration (07/21/17 17:16) Piperacil-Tazo 4.5 Gm Premix (Zosyn 4.5 (07/21/17 17:16) Vancomycin Inj (Vancomycin Inj) (07/21/17 17:16) Sodium Chlor 0.9% 1000 Ml Inj (Ns 1000 M (07/21/17 17:30) Labs Laboratory Tests Test 07/21/17 17:55 07/21/17 19:04 Lactic Acid Level 1.1 mmol/L White Blood Count 7.4 TH/MM3 Red Blood Count 2.96 MIL/MM3 Hemoglobin 10.1 GM/DL Hematocrit 29.3 % Mean Corpuscular Volume 98.9 FL Mean Corpuscular Hemoglobin 34.2 PG Mean Corpuscular Hemoglobin Concent 34.5 % Red Cell Distribution Width 12.5 % Platelet Count 158 TH/MM3 Mean Platelet Volume 7.5 FL Neutrophils (%) (Auto) 67.6 % Lymphocytes (%) (Auto) 13.0 % Monocytes (%) (Auto) 19.0 % Eosinophils (%) (Auto) 0.2 % Basophils (%) (Auto) 0.2 % Neutrophils # (Auto) 5.0 TH/MM3 Lymphocytes # (Auto) 1.0 TH/MM3 Monocytes # (Auto) 1.4 TH/MM3 Eosinophils # (Auto) 0.0 TH/MM3 Basophils # (Auto) 0.0 TH/MM3 CBC Comment DIFF FINAL Differential Comment Prothrombin Time 11.8 SEC Prothromb Time International Ratio 1.2 RATIO Activated Partial Thromboplast Time 30.4 SEC Blood Urea Nitrogen 27 MG/DL Creatinine 0.94 MG/DL Random Glucose 109 MG/DL Total Protein 6.0 GM/DL Albumin 2.1 GM/DL Calcium Level 7.5 MG/DL Alkaline Phosphatase 89 U/L Aspartate Amino Transf (AST/SGOT) 35 U/L Alanine Aminotransferase (ALT/SGPT) 23 U/L Total Bilirubin 0.4 MG/DL Sodium Level 140 MEQ/L Potassium Level 4.0 MEQ/L Chloride Level 106 MEQ/L Carbon Dioxide Level 25.1 MEQ/L Anion Gap 9 MEQ/L Estimat Glomerular Filtration Rate 83 ML/MIN [facility] Medical Record Reviewed: Yes Supervised Visit with MANDA: No Interpretation(s) Laboratory Tests Test 07/21/17 17:55 07/21/17 19:04 Lactic Acid Level 1.1 mmol/L White Blood Count 7.4 TH/MM3 Red Blood Count 2.96 MIL/MM3 Hemoglobin 10.1 GM/DL Hematocrit 29.3 % Mean Corpuscular Volume 98.9 FL Mean Corpuscular Hemoglobin 34.2 PG Mean Corpuscular Hemoglobin Concent 34.5 % Red Cell Distribution Width 12.5 % Platelet Count 158 TH/MM3 Mean Platelet Volume 7.5 FL Neutrophils (%) (Auto) 67.6 % Lymphocytes (%) (Auto) 13.0 % Monocytes (%) (Auto) 19.0 % Eosinophils (%) (Auto) 0.2 % Basophils (%) (Auto) 0.2 % Neutrophils # (Auto) 5.0 TH/MM3 Lymphocytes # (Auto) 1.0 TH/MM3 Monocytes # (Auto) 1.4 TH/MM3 Eosinophils # (Auto) 0.0 TH/MM3 Basophils # (Auto) 0.0 TH/MM3 CBC Comment DIFF FINAL Differential Comment Prothrombin Time 11.8 SEC Prothromb Time International Ratio 1.2 RATIO Activated Partial Thromboplast Time 30.4 SEC Blood Urea Nitrogen 27 MG/DL Creatinine 0.94 MG/DL Random Glucose 109 MG/DL Total Protein 6.0 GM/DL Albumin 2.1 GM/DL Calcium Level 7.5 MG/DL Alkaline Phosphatase 89 U/L Aspartate Amino Transf (AST/SGOT) 35 U/L Alanine Aminotransferase (ALT/SGPT) 23 U/L Total Bilirubin 0.4 MG/DL Sodium Level 140 MEQ/L Potassium Level 4.0 MEQ/L Chloride Level 106 MEQ/L Carbon Dioxide Level 25.1 MEQ/L Anion Gap 9 MEQ/L Estimat Glomerular Filtration Rate 83 ML/MIN Differential Diagnosis . Narrative Course IV access is obtained. Patient was given vancomycin and Zosyn. The case has been discussed with Dr. Mcdermott who has agreed to admit the patient observation. Diagnosis Primary Impression: Cellulitis of right knee Additional Impression: Abrasion of knee, right, infected Qualified Codes: S80.211A - Abrasion, right knee, initial encounter; L08.9 - Local infection of the skin and subcutaneous tissue, unspecified Condition: Stable Dayne Salas Jul 21, 2017 20:43
[2017-07-21] MEDS ORDERED: SENNOSIDES 8.6 MG TAB PO PRN (20:45)
[2017-07-21] MEDS ORDERED: BISACODYL 10 MG SUPP RECTAL PRN (20:45)
[2017-07-21] MEDS ORDERED: Vancomycin Consult Pharmacy 1 EA OTHER SCH (20:45)
[2017-07-21] MEDS ORDERED: SODIUM CHLORIDE 0.9% FLUSH 10 ML FLUSH IV FLUSH PRN (20:45)
[2017-07-21] MEDS ORDERED: MAGNESIUM HYDROXIDE SUSP 30 ML CUP PO PRN (20:45)
[2017-07-21] MEDS ORDERED: LACTULOSE SYRUP 20 GM/30 ML CUP PO PRN (20:45)
[2017-07-21] MEDS ORDERED: ONDANSETRON HCL 4 MG/2 ML VIAL IVP PRN (20:45)
[2017-07-21] MEDS ORDERED: ACETAMINOPHEN 325 MG TAB PO PRN (20:45)
[2017-07-21] MEDS ORDERED: GADODIAMIDE PF 287 MG/ML 5 ML VIAL (for RAD MRI) IVCONTRAST ONE (20:46)
--- NOTE | 2017-07-21 20:58 | HHI.HP ---
HPI Service [facility] Primary Care Physician Non-Staff Admission Diagnosis Right lower leg cellulitis Diagnoses: (1) Cellulitis Diagnosis: Principal (2) Dehydration Diagnosis: Principal (3) Development delay Diagnosis: Principal Travel History International Travel<30 Days: No Contact w/Intl Traveler <30 Da: No Traveled to Known Affected Are: No History of Present Illness This is a 56-year-old male with a PMH of Anxiety, Depression, Bipolar Disorder, Developmental Delay, Schizophrenia and HTN who is brought to the ER by sash sticker for evaluation of right knee redness and swelling. Pt unable to provide history. Rn Palliative noted infection this morning, actual time of onset unknown. Pt does report some tenderness to palpation. No reported fever, chills. On arrival, BP 102/63, HR 108, O2 sat 99% on RA. CBC unremarkable. Chemistry essentially unremarkable except for GFR 83. INR 1.2. UA negative. On exam, pt noted to have right leg erythema w/ large abrasion to right knee. S /p Vanc/Zosyn in ER. Review of Systems Except as stated in HPI: all other systems reviewed are Neg ROS: 14 point review of systems otherwise negative. Past Family Social History Past Medical History PMH: Anxiety, Depression, Bipolar Disorder, Developmental Delay, Schizophrenia and HTN Past Surgical History PAST SURGICAL HISTORY: Hernia Repair, Cataract Surgery Allergies: Coded Allergies: No Known Allergies (Verified Allergy, Unknown, 07/21/17) Family History PAST FAMILY HISTORY: Reviewed. No h/o DM or CAD Social History PAST SOCIAL HISTORY: Negative for alcohol, tobacco or drugs. Physical Exam Vital Signs Vital Signs Date Time Temp Pulse Resp B/P (MAP) Pulse Ox O2 Delivery O2 Flow Rate FiO2 07/21/17 19:28 90 16 160/86 (110) 100 Room Air 07/21/17 16:26 108 20 102/63 (76) 99 Physical Exam PE: GENERAL: Middle-aged white male in no acute distress, + developmental delay. HEENT: PERRLA, EOMI. No scleral icterus or conjunctival pallor. No lid lag or facial droop. CARDIOVASCULAR: Regular rate and rhythm. No obvious murmurs to auscultation. No chest tenderness to palpation. RESPIRATORY: No obvious rhonchi or wheezing. Clear to auscultation. Breath sounds equal bilaterally. GASTROINTESTINAL: Abdomen soft, non-tender, nondistended. BS normal. MUSCULOSKELETAL: Extremities without clubbing, cyanosis, or edema. No obvious deformities. RLE w/ erythema, +right knee abrasion w/ eschar. NEUROLOGICAL: Awake, alert and oriented x4. No focal neurologic deficits. Moving both upper and lower extremities spontaneously. Laboratory Laboratory Tests Test 07/21/17 17:55 07/21/17 19:04 Lactic Acid Level 1.1 White Blood Count 7.4 Red Blood Count 2.96 Hemoglobin 10.1 Hematocrit 29.3 Mean Corpuscular Volume 98.9 Mean Corpuscular Hemoglobin 34.2 Mean Corpuscular Hemoglobin Concent 34.5 Red Cell Distribution Width 12.5 Platelet Count 158 Mean Platelet Volume 7.5 Neutrophils (%) (Auto) 67.6 Lymphocytes (%) (Auto) 13.0 Monocytes (%) (Auto) 19.0 Eosinophils (%) (Auto) 0.2 Basophils (%) (Auto) 0.2 Neutrophils # (Auto) 5.0 Lymphocytes # (Auto) 1.0 Monocytes # (Auto) 1.4 Eosinophils # (Auto) 0.0 Basophils # (Auto) 0.0 CBC Comment DIFF FINAL Differential Comment Prothrombin Time 11.8 Prothromb Time International Ratio 1.2 Activated Partial Thromboplast Time 30.4 Blood Urea Nitrogen 27 Creatinine 0.94 Random Glucose 109 Total Protein 6.0 Albumin 2.1 Calcium Level 7.5 Alkaline Phosphatase 89 Aspartate Amino Transf (AST/SGOT) 35 Alanine Aminotransferase (ALT/SGPT) 23 Total Bilirubin 0.4 Sodium Level 140 Potassium Level 4.0 Chloride Level 106 Carbon Dioxide Level 25.1 Anion Gap 9 Estimat Glomerular Filtration Rate 83 Date/Time Source Procedure Growth Status 07/21/17 17:55 Blood Peripheral Aerobic Blood Culture Pending Received 07/21/17 17:55 Blood Peripheral Anaerobic Blood Culture Pending Received 07/21/17 18:23 Wound Knee Gram Stain Pending Received 07/21/17 18:23 Wound Knee Wound Culture Pending Received Result Diagram: 07/21/17190307/21/171903 Caprini VTE Risk Assessment Chandlerrini VTE Risk Assessment: No/Low Risk (score <= 1) Caprini Risk Assessment Model Point Value = 1 Point Value = 2 Point Value = 3 Point Value = 5 Age 41-60 Minor surgery BMI > 25 kg/m2 Swollen legs Varicose veins or History of unexplained or recurrent spontaneous Oral contraceptives or hormone replacement Sepsis (< 1 month) Serious lung disease, including pneumonia (< 1 month) Abnormal pulmonary function Acute myocardial infarction Congestive heart failure (< 1 month) History of inflammatory bowel disease Medical patient at bed rest Age 61-74 Arthroscopic surgery Major open surgery (> 45 min) Laparoscopic surgery (> 45 min) Malignancy Confined to bed (> 72 hours) Immobilizing plaster cast Central venous access Age >= 75 History of VTE Family history of VTE Factor V Leiden Prothrombin [id number] Lupus anticoagulant Anticardiolipin antibodies Elevated serum homocysteine Heparin-induced thrombocytopenia Other congenital or acquired thrombophilia Stroke (< 1 month) Elective arthroplasty Hip, pelvis, or leg fracture Acute spinal cord injury (< 1 month) Prophylaxis Regimen Total Risk Factor Score Risk Level Prophylaxis Regimen 0-1 Low Early ambulation 2 Moderate Order ONE of the following: *Sequential Compression Device (SCD) *Heparin 5000 units SQ BID 3-4 Higher Order ONE of the following medications: *Heparin 5000 units SQ TID *Enoxaparin/Lovenox 40 mg SQ daily (WT < 150 kg, CrCl > 30 mL/min) *Enoxaparin/Lovenox 30 mg SQ daily (WT < 150 kg, CrCl > 10-29 mL/min) *Enoxaparin/Lovenox 30 mg SQ BID (WT < 150 kg, CrCl > 30 mL/min) AND/OR *Sequential Compression Device (SCD) 5 or more Highest Order ONE of the following medications: *Heparin 5000 units SQ TID (Preferred with Epidurals) *Enoxaparin/Lovenox 40 mg SQ daily (WT < 150 kg, CrCl > 30 mL/min) *Enoxaparin/Lovenox 30 mg SQ daily (WT < 150 kg, CrCl > 10-29 mL/min) *Enoxaparin/Lovenox 30 mg SQ BID (WT < 150 kg, CrCl > 30 mL/min) AND *Sequential Compression Device (SCD) Assessment and Plan Problem List: (1) Cellulitis ICD Code: L03.90 - Cellulitis, unspecified (2) Dehydration ICD Code: E86.0 - Dehydration (3) Development delay ICD Code: R62.50 - Unspecified lack of expected normal physiological development in childhood Assessment and Plan A/P: 1. Cellulitis: RLE. Onset unknown. Afebrile, no leukocytosis. On exam, pt w / erythema/edema and right knee abrasion w/ eschar. S/p Vanc/Zosyn. Will continue w/ IV Abx. Consult Wound Management for further evaluation/ intervention. Repeat labs in am. 2. Dehydration: GFR 83, U/a negative for UTI. IVF for hydration, repeat labs in am 3. Developmental Delay: Resume home medications. 4. DVT Prophylaxis: SCD/Teds. 5. Social work for d/c planning as needed. 6. Case discussed w/ ER physician at length, labs/records/imaging reviewed by me. Problem Qualifiers (1) Cellulitis: Qualified Codes: L03.115 - Cellulitis of right lower limb Kristine Mcdermott MD Jul 21, 2017 20:58
[2017-07-21] MEDS: QUEtiapine FUMARATE 100 MG TAB PO SCH (21:00)
[2017-07-21] MEDS: SODIUM CHLORIDE 0.9% FLUSH 10 ML FLUSH IV FLUSH SCH (21:00)
[2017-07-21] MEDS: DOCUSATE SODIUM 50 MG/SENNA 8.6 MG TAB PO SCH (21:00)
[2017-07-21] MEDS: DIVALPROEX SODIUM E.R. 500 MG TAB PO SCH (21:00)
[2017-07-21] MEDS: PRAVASTATIN SOD 40 MG TAB PO SCH (21:15)
[2017-07-21 21:20] LABS: BILIRUBIN, URINE NEG (NEG); BLOOD, URINE NEG (NEG); GLUCOSE,URINE NEG (NEG); KETONE, URINE 10 mg/dL (NEG); MUCUS URINE FEW /lpf (OCC); NITRITE,URINE NEG (NEG); URINE COLOR YELLOW (YELLW/STRAW); URINE LEUKOCYTE ESTERASE NEG (NEG)
[2017-07-21 21:48] VITALS: BP 142/110; PULSE 90; RESP 18; O2SAT 98
[2017-07-22] MEDS: PIPERACIL-TAZO 4.5 GM PREMIX 100 ML IV SCH ×5 (01:35→21:42)
[2017-07-22] MEDS: SODIUM CHLOR 0.9% 1000 ML INJ 1,000 ML IV SCH ×3 (01:36→16:42)
[2017-07-22] MEDS: VANCOMYCIN 1,000 MG/NS 250 ML IV SCH ×4 (05:05→18:22)
[2017-07-22 07:40] LABS: BASOPHIL % 0.1 % (0.0-2.0); EOSINOPHIL % 0.9 % (0.0-4.0); HEMATOCRIT 29.1 % (39.0-51.0); LYMPH % 26.9 % (9.0-44.0); LYMPHOCYTE # 1.5 TH/MM3 (1.0-4.8); MEAN CELL VOLUME 97.9 FL (80.0-100.0); MEAN CORPUSCULAR HEMOGLOBIN 33.7 PG (27.0-34.0); MEAN CORPUSCULAR HGB CONC 34.4 % (32.0-36.0); MEAN PLATELET VOLUME 7.3 FL (7.0-11.0); MONO % 17.7 % (0.0-8.0); NEUT % 54.4 % (16.0-70.0); PLATELET COUNT 168 TH/MM3 (150-450); RED BLOOD COUNT 2.97 MIL/MM3 (4.50-5.90); RED CELL DISTRIBUTION WIDTH 12.5 % (11.6-17.2); WHITE BLOOD COUNT 5.4 TH/MM3 (4.0-11.0)
[2017-07-22 08:26] LABS: ALBUMIN 1.8 GM/DL (3.4-5.0); BICARBONATE 26.7 MEQ/L (21.0-32.0); CALCIUM 7.3 MG/DL (8.5-10.1); CALCIUM-PROTEIN CORRECTED 8.2 MG/DL (8.5-10.1); CREATININE 0.69 MG/DL (0.60-1.30); TOTAL BILIRUBIN ADULT 0.5 MG/DL (0.2-1.0); TOTAL PROTEIN 5.4 GM/DL (6.4-8.2)
[2017-07-22] MEDS: LORATADINE 10 MG TAB PO SCH (09:16)
[2017-07-22] MEDS: QUEtiapine FUMARATE 100 MG TAB PO SCH ×2 (09:16→20:26)
[2017-07-22] MEDS: DIVALPROEX SODIUM E.R. 500 MG TAB PO SCH ×2 (09:16→20:26)
[2017-07-22] MEDS: busPIRone HCL 10 MG TAB PO SCH ×3 (09:16→17:36)
[2017-07-22] MEDS: LISINOPRIL 5 MG TAB PO SCH (09:16)
[2017-07-22] MEDS: HEPARIN SODIUM - SQ 10,000 UNITS/ML VIAL SQ SCH ×2 (09:17→21:42)
[2017-07-22] MEDS: DOCUSATE SODIUM 50 MG/SENNA 8.6 MG TAB PO SCH ×2 (09:17→20:26)
[2017-07-22] MEDS: SODIUM CHLORIDE 0.9% FLUSH 10 ML FLUSH IV FLUSH SCH ×2 (09:17→21:00)
[2017-07-22] MEDS: risperiDONE 1 MG TAB PO SCH ×3 (09:17→17:37)
[2017-07-22 09:41] VITALS: BP 151/84; PULSE 70; RESP 20; TEMP 98.2; O2SAT 96
[2017-07-22 11:55] VITALS: BP 133/70; PULSE 84; RESP 20; TEMP 98.6; O2SAT 96
--- NOTE | 2017-07-22 12:41 | HHI.PR ---
Subjective Remarks Follow-up right knee cellulitis. Patient seen and examined sitting in bed today. Patient has developmental delay. Poor historian. Repetitive in his words but keeps on saying he wants to go home. When asked about the right knee , patient states he had "a fall and hit his right knee it is still very very painful." Denies fevers, chills. Objective Vitals Vital Signs Date Time Temp Pulse Resp B/P (MAP) Pulse Ox O2 Delivery O2 Flow Rate FiO2 07/22/17 11:55 98.6 84 20 133/70 (91) 96 07/22/17 09:41 98.2 70 20 151/84 (106) 96 07/21/17 23:16 07/21/17 21:48 90 18 142/110 (121) 98 Room Air 07/21/17 19:28 90 16 160/86 (110) 100 Room Air 07/21/17 16:26 108 20 102/63 (76) 99 I/O 07/21/17 07/21/17 07/21/17 07/22/17 07/22/17 07/22/17 07:00 15:00 23:00 07:00 15:00 23:00 Intake Total 1350 ml 1700 ml 200 ml Balance 1350 ml 1700 ml 200 ml Intake Oral 350 ml 200 ml IV Total 1350 ml 1350 ml Result Diagram: 07/22/17 0625 07/22/17 0625 Imaging 07/07/17 XRAY - No acute fracture Objective Remarks GENERAL: This is a well-nourished, well-developed patient, in no apparent distress. SKIN: Warm and dry. HEENT: Normocephalic. Pupils equal round and reactive. Nose without bleeding. Airway patent. NECK: Trachea midline. No JVD. Supple. CARDIOVASCULAR: Regular rate and rhythm without murmurs, gallops, or rubs. RESPIRATORY: Clear to auscultation. Breath sounds equal bilaterally. No wheezes , rales, or rhonchi. GASTROINTESTINAL: Abdomen soft, non-tender, nondistended. Bowel Sounds normoactive x4. MUSCULOSKELETAL: Extremities without clubbing, cyanosis. Right knee edema, erythema extends to right lower leg. Scab wound in the anterior portion of knee approx [id number]. Right knee with abrasion NEUROLOGICAL: Awake and alert. Moves all extremities. Normal speech. A/P Problem List: (1) Cellulitis ICD Code: L03.90 - Cellulitis, unspecified (2) Dehydration ICD Code: E86.0 - Dehydration (3) Development delay ICD Code: R62.50 - Unspecified lack of expected normal physiological development in childhood Assessment and Plan Patient is a 56-year-old male with a PMH of Anxiety, Depression, Bipolar Disorder, Developmental Delay, Schizophrenia and HTN who is brought to the ER by websphere commerce architect for evaluation of right knee redness and swelling. Right knee cellulitis -Onset is unknown. Poor historian. Status post fall -X-ray reports no fracture -Erythema, edema on exam. Difficulty with AROM. -We will check MRI -Continue IV Vanco, Zosyn -Follow-up wound culture. Follow-up blood cultures -Wound care consult for further evaluation and intervention. Hypokalemia -Potassium replaced -Monitor potassium level Dehydration: GFR 83, BUN 27 - U/a negative for UTI. - IVF for hydration - Improved Developmental Delay: Resume home medications. DVT Prophylaxis: SCD/Teds. Discharge Planning Plan to DC home if clinically improved. Problem Qualifiers (1) Cellulitis: Qualified Codes: L03.115 - Cellulitis of right lower limb Odilon Rai Jul 22, 2017 12:41
[2017-07-22] MEDS ORDERED: POTASSIUM CHLORIDE 20 MEQ CONTROLLED RELEASE TAB PO ONE (13:00)
[2017-07-22 16:14] VITALS: BP 140/60; PULSE 68; RESP 20; TEMP 98.6; O2SAT 98
--- NOTE | 2017-07-22 16:28 | RADRPT ---
EXAM DATE/TIME: 07/22/2017 15:23 [place] COMPARISON: No previous studies available for comparison. INDICATIONS : Cellulitis, right knee. CONTRAST: 14 cc Omniscan (gadodiamide) IV MEDICAL HISTORY : SURGICAL HISTORY : Inguinal hernia repair. ENCOUNTER: Initial ACUITY: 1 day PAIN SCORE: 3/10 LOCATION: Right Knee. TECHNIQUE: Multiplanar multisequence MRI examination of the knee was performed with and without contrast. FINDINGS: There is extensive edema in the subcutaneous soft tissues, especially anteriorly around the knee. Thi s also enhances postcontrast. Anterior to the tibial tuberosity there is an enhancing fluid collectio n measuring up to 3.1 x 1.4 cm, probably an abscess. There is also a thin elliptical fluid collection within the prepatellar region which could represent an early abscess or a prepatellar bursitis. Ther e is some edema within the musculature but no enhancing fluid collections within the musculature to s uggest abscess. There is advanced osteoarthritis the patellofemoral joints and mild to moderate osteoarthritis in the medial and lateral joint space. Cruciate and collateral ligaments intact. No displaced meniscal tear s. Small to moderate knee joint effusion. No evidence for osteomyelitis. CONCLUSION: 1. Extensive cellulitis around the right knee, especially anteriorly with some loculated fluid in the pre-tibial soft tissues at the level of the tibial tuberosity as measured above, probably small absc ess. There is also a small elliptical shaped abscess or prepatellar bursitis at the level of the arthur lla measuring about 3 mm in thickness. 2. No evidence for osteomyelitis. There is a small to moderate-sized knee joint effusion. 3. Advanced osteoarthritis at the patellofemoral joint. Mild to moderate osteoarthritis of the medial and lateral joints. 4. Mild tendinopathy of the patellar ligament. Dayne James MD on July 22, 2017 at 16:19 Board Certified Radiologist. This report was verified electronically.
[2017-07-22 20:22] VITALS: BP 143/91; PULSE 83; RESP 18; TEMP 98.4; O2SAT 100
[2017-07-22] MEDS: PRAVASTATIN SOD 40 MG TAB PO SCH (20:26)
[2017-07-22] MEDS: LORazepam 1 MG TAB PO PRN (21:41)
[2017-07-22] MEDS: ACETAMINOPHEN/HYDROcodone 325 MG/5 MG TAB PO PRN (21:42)
[2017-07-23] MEDS: MORPHINE SULFATE 2 MG/ML INJ IV PUSH PRN ×2 (02:38→06:37)
[2017-07-23 04:05] LABS: HEMATOCRIT 28.1 % (39.0-51.0); HEMOGLOBIN 9.7 GM/DL (13.0-17.0); MEAN CELL VOLUME 98.3 FL (80.0-100.0); MEAN CORPUSCULAR HEMOGLOBIN 33.8 PG (27.0-34.0); MEAN CORPUSCULAR HGB CONC 34.4 % (32.0-36.0); MEAN PLATELET VOLUME 7.2 FL (7.0-11.0); PLATELET COUNT 178 TH/MM3 (150-450); RED BLOOD COUNT 2.86 MIL/MM3 (4.50-5.90); RED CELL DISTRIBUTION WIDTH 12.7 % (11.6-17.2); WHITE BLOOD COUNT 5.1 TH/MM3 (4.0-11.0)
[2017-07-23 04:33] LABS: BICARBONATE 30.1 MEQ/L (21.0-32.0); CALCIUM 7.9 MG/DL (8.5-10.1); CREATININE 0.65 MG/DL (0.60-1.30)
[2017-07-23 04:34] LABS: VANCOMYCIN TROUGH 8.3 MCG/ML (5.0-10.0)
[2017-07-23] MEDS ORDERED: PHARMACY ORDERED LAB ONE (04:45)
[2017-07-23] MEDS: PIPERACIL-TAZO 4.5 GM PREMIX 100 ML IV SCH ×2 (05:09→11:21)
[2017-07-23] MEDS: VANCOMYCIN 1,000 MG/NS 250 ML IV SCH ×2 (05:15)
[2017-07-23 08:00] VITALS: BP 107/56; PULSE 81; RESP 18; TEMP 96.5; O2SAT 100
[2017-07-23] MEDS ORDERED: SODIUM CHLOR 0.9% 1000 ML INJ 1,000 ML IV PRN (08:15)
[2017-07-23] MEDS: LISINOPRIL 5 MG TAB PO SCH (09:00)
[2017-07-23] MEDS: QUEtiapine FUMARATE 100 MG TAB PO SCH ×2 (09:34→21:04)
[2017-07-23] MEDS: busPIRone HCL 10 MG TAB PO SCH ×3 (09:35→18:13)
[2017-07-23] MEDS: DOCUSATE SODIUM 50 MG/SENNA 8.6 MG TAB PO SCH ×2 (09:35→21:04)
[2017-07-23] MEDS: SODIUM CHLORIDE 0.9% FLUSH 10 ML FLUSH IV FLUSH SCH ×2 (09:35→21:05)
[2017-07-23] MEDS: DIVALPROEX SODIUM E.R. 500 MG TAB PO SCH ×2 (09:35→21:04)
[2017-07-23] MEDS: LORATADINE 10 MG TAB PO SCH (09:35)
[2017-07-23] MEDS: risperiDONE 1 MG TAB PO SCH ×3 (09:35→18:13)
[2017-07-23 12:00] VITALS: BP 117/61; PULSE 86; RESP 18; TEMP 96.3; O2SAT 100
--- NOTE | 2017-07-23 12:44 | HHI.PR ---
Subjective Remarks Right knee cellulitis/prepatellar abscess. Still with right knee pain though with increased range of motion. Discussed with nursing and infectious disease Objective Vitals Vital Signs Date Time Temp Pulse Resp B/P (MAP) Pulse Ox O2 Delivery O2 Flow Rate FiO2 07/23/17 12:00 96.3 86 18 117/61 (79) 100 07/23/17 08:00 96.5 81 18 107/56 (73) 100 07/23/17 04:05 18 07/22/17 22:50 18 07/22/17 20:22 98.4 83 18 143/91 (108) 100 07/22/17 16:14 98.6 68 20 140/60 (86) 98 I/O 07/22/17 07/22/17 07/22/17 07/23/17 07/23/17 07/23/17 07:00 15:00 23:00 07:00 15:00 23:00 Intake Total 1700 ml 200 ml 850 ml 100 ml Output Total 800 ml 600 ml Balance 1700 ml 200 ml -800 ml 250 ml 100 ml Intake Oral 350 ml 200 ml 500 ml IV Total 1350 ml 350 ml 100 ml Output Urine Total 800 ml 600 ml Result Diagram: 07/23/17 0350 07/23/17 0350 Imaging Last Impressions Knee MRI 07/22/17 0000 Signed Impressions: Service Date/Time: Saturday, July 22, 2017 15:23 - CONCLUSION: 1. Extensive cellulitis around the right knee, especially anteriorly with some loculated fluid in the pre-tibial soft tissues at the level of the tibial tuberosity as measured above, probably small abscess. There is also a small elliptical shaped abscess or prepatellar bursitis at the level of the patella measuring about 3 mm in thickness. 2. No evidence for osteomyelitis. There is a small to moderate-sized knee joint effusion. 3. Advanced osteoarthritis at the patellofemoral joint. Mild to moderate osteoarthritis of the medial and lateral joints. 4. Mild tendinopathy of the patellar ligament. Dayne James MD Objective Remarks GENERAL: This is a well-nourished, well-developed patient, in no apparent distress. SKIN: Warm and dry. CARDIOVASCULAR: Regular rate and rhythm without murmurs, gallops, or rubs. RESPIRATORY: Clear to auscultation. Breath sounds equal bilaterally. No wheezes , rales, or rhonchi. GASTROINTESTINAL: Abdomen soft, non-tender, nondistended. Bowel Sounds normoactive x4. MUSCULOSKELETAL: Extremities without clubbing, cyanosis. Right knee edema, erythema extends to right lower leg which is improving as well as range of motion. Scab wound in the anterior portion of knee approx [id number]. Right knee with abrasion NEUROLOGICAL: Awake and alert. Moves all extremities. Normal speech. A/P Problem List: (1) Cellulitis ICD Code: L03.90 - Cellulitis, unspecified (2) Dehydration ICD Code: E86.0 - Dehydration (3) Development delay ICD Code: R62.50 - Unspecified lack of expected normal physiological development in childhood Assessment and Plan Patient is a 56-year-old male with a PMH of Anxiety, Depression, Bipolar Disorder, Developmental Delay, Schizophrenia and HTN who is brought to the ER by tray worker for evaluation of right knee redness and swelling. Right knee cellulitis/prepatellar abscess. Culture with MSSA. Clinically improving antibiotics switched to IV Ancef. Infectious disease and orthopedic surgery following Hypokalemia. Replace. Monitor potassium level Dehydration: GFR 83, BUN 27. Improved IV hydration as needed Developmental Delay: Resume home medications. DVT Prophylaxis: SCD/Teds. Hold subcu heparin may need intervention Discharge Planning Possible discharge in 1-2 days Problem Qualifiers (1) Cellulitis: Qualified Codes: L03.115 - Cellulitis of right lower limb Ricci Rossi MD Jul 23, 2017 12:44
--- NOTE | 2017-07-23 12:48 | PD.CONS ---
cc: Cezar Velasquez Jr., MD HPI Service [facility] Consult Requested By Primary Care Physician Non-Staff Admission Diagnosis Right lower leg cellulitis Diagnoses: (1) Cellulitis (2) Dehydration (3) Development delay Chief Complaint: right knee cellulitis History of Present Illness 56-year-old male with a PMH of Anxiety, Depression, Bipolar Disorder, Developmental Delay, Schizophrenia and HTN who is brought to the ER by project financial analyst for evaluation of right knee redness and swelling. Pt unable to provide history. Mold Car Pusher noted increase in redness this morning. Patient has had a chronic wound over the right knee which has been for about 1 year now. He reports falling injuring his knee last year and has had the wound since. He denies any fever, chills or recent trauma. -Currently is alert, pain localized at right knee, patient's is 2 out of 10, passive range of motion is tolerable, exacerbated by excessive pressure over the wound, relieved at rest and with IV pain medicine, pain is nonradiating, dull, not associated with any paresthesia and numbness to the extremity. ROS - General Review of Systems Except as stated in HPI: all other systems reviewed are Neg ROS: 14 point review of systems otherwise negative. PFSH Past Family Social History Past Medical History PMH: Anxiety, Depression, Bipolar Disorder, Developmental Delay, Schizophrenia and HTN Past Surgical History PAST SURGICAL HISTORY: Hernia Repair, Cataract Surgery Allergies: Coded Allergies: No Known Allergies (Verified Allergy, Unknown, 07/21/17) Family History PAST FAMILY HISTORY: Reviewed. No h/o DM or CAD Social History PAST SOCIAL HISTORY: Negative for alcohol, tobacco or drugs Review of Systems Constitutional: DENIES: Diaphoretic episodes, Fatigue, Fever, Weight gain, Weight loss, Chills, Dizziness, Change in appetite, Night Sweats Endocrine: DENIES: Heat/cold intolerance, Polydipsia, Polyuria, Polyphagia Eyes: DENIES: Blurred vision, Diplopia, Eye inflammation, Eye pain, Vision loss , Photosensitivity, Double Vision Ears, nose, mouth, throat: DENIES: Tinnitus, Hearing loss, Vertigo, Nasal discharge, Oral lesions, Throat pain, Hoarseness, Ear Pain, Running Nose, Epistaxis, Sinus Pain, Toothache, Odynophagia Respiratory: DENIES: Apneas, Cough, Snoring, Wheezing, Hemoptysis, Sputum production, Shortness of breath Past Family Social History Past Medical History PMH: Anxiety, Depression, Bipolar Disorder, Developmental Delay, Schizophrenia and HTN Past Surgical History PAST SURGICAL HISTORY: Hernia Repair, Cataract Surgery Allergies: Coded Allergies: No Known Allergies (Verified Allergy, Unknown, 07/21/17) Active Ordered Medications Current Medications Medications (Trade) Dose Ordered Sig/Louise Route Start Time Stop Time Status Last Admin Pharmacy Profile Note 0 ml @ 0 mls/hr UNSCH OTHER 07/21/17 20:45 Piperacillin Sod/ Tazobactam Sod 100 ml @ 200 mls/hr Q6H IV 07/21/17 23:00 07/23/17 11:21 (NS Flush) 2 ml UNSCH PRN IV FLUSH 07/21/17 20:45 (NS Flush) 2 ml BID IV FLUSH 07/21/17 21:00 07/23/17 09:35 (Zofran Inj) 4 mg Q6H PRN IVP 07/21/17 20:45 (Heparin Inj) 5,000 units Q12H SQ 07/22/17 09:00 Future Hold 07/22/17 21:42 (Tylenol) 650 mg Q6H PRN PO 07/21/17 20:45 07/22/17 17:37 ([place] 5-325 Mg) 1 tab Q4H PRN PO 07/21/17 20:45 07/22/17 21:42 (Morphine Inj) 2 mg Q3H PRN IV PUSH 07/21/17 20:45 07/23/17 06:37 (Yoly-Colace) 1 tab BID PO 07/21/17 21:00 07/23/17 09:35 (Milk Of Magnesia Liq) 30 ml Q12H PRN PO 07/21/17 20:45 (Senokot) 17.2 mg Q12H PRN PO 07/21/17 20:45 (Dulcolax Supp) 10 mg DAILY PRN RECTAL 07/21/17 20:45 (Lactulose Liq) 30 ml DAILY PRN PO 07/21/17 20:45 (Buspar) 30 mg TID PO 07/22/17 09:00 07/23/17 09:35 (Thorazine) 200 mg BID PRN PO 07/21/17 20:45 07/22/17 21:43 (Depakote Er) 500 mg BID PO 07/21/17 21:00 07/23/17 09:35 (Prinivil) 5 mg DAILY PO 07/22/17 09:00 07/22/17 09:16 (Claritin) 10 mg DAILY PO 07/22/17 09:00 07/23/17 09:35 (Ativan) 1 mg DAILY PRN PO 07/21/17 20:45 07/22/17 21:41 (SEROquel) 100 mg BID PO 07/21/17 21:00 07/23/17 09:34 (risperDAL) 4 mg TID PO 07/22/17 09:00 07/23/17 09:35 (Pravachol) 40 mg HS PO 07/21/17 21:15 07/22/17 20:26 Sodium Chloride 1,000 ml @ 70 mls/hr [id number] PRN IV 07/23/17 08:15 Vancomycin HCl 1250 mg/Sodium Chloride 262.5 ml @ 250 mls/hr Q12H IV 07/23/17 17:00 Miscellaneous Information SPECIFIC LAB TO BE DRAWN:VANCOMYCIN TROUGH DATE TO... ONCE ONCE .XX 07/25/17 04:45 07/25/17 04:46 Reported Meds & Active Scripts Active Reported Bisacodyl EC (Bisacodyl) 5 Mg Tabec 5 Mg PO DAILY PRN Lorazepam 1 Mg Tab 1 Mg PO DAILY PRN Seroquel (Quetiapine Fumarate) 100 Mg Tab 100 Mg PO BID Depakote ER (Divalproex Sodium) 500 Mg Kelin 500 Mg PO BID Chlorpromazine (Chlorpromazine HCl) 200 Mg Tab 200 Mg PO BID PRN Buspirone (Buspirone HCl) 30 Mg Tab 30 Mg PO TID Risperidone 4 Mg Tab 4 Mg PO TID Claritin (Loratadine) 10 Mg Cap 10 Mg PO DAILYHS Simvastatin 20 Mg Tab 20 Mg PO DAILYHS Lisinopril 5 Mg Tab 5 Mg PO DAILY Family History PAST FAMILY HISTORY: Reviewed. No h/o DM or CAD Social History PAST SOCIAL HISTORY: Negative for alcohol, tobacco or drugs. Physical Exam Vital Signs Vital Signs Date Time Temp Pulse Resp B/P (MAP) Pulse Ox O2 Delivery O2 Flow Rate FiO2 07/23/17 12:00 96.3 86 18 117/61 (79) 100 07/23/17 08:00 96.5 81 18 107/56 (73) 100 07/23/17 04:05 18 07/22/17 22:50 18 07/22/17 20:22 98.4 83 18 143/91 (108) 100 07/22/17 16:14 98.6 68 20 140/60 (86) 98 Physical Exam Alert awake and oriented x 3. No acute distress. Head: NC/AT Neck: No pain with any range of motion and neck. Pulmonary: Normal respiratory effort. Bilateral upper extremity: Grossly neurovascularly intact 2+ radial artery pulses. Good cap refill. RIGHT lower extremity: 30 knee contracture. Quarter size infrapatellar wound with mild surrounding erythema. Minimal tenderness to palpation inferior to the wound. Mild swelling at the infrapatellar bursa. No knee effusion. Good cap refill and strong distal pulses. Supple compartments. Negative Homans sign. LEFT lower extremity: Grossly neuro intact. Good cap refill and strong distal pulses. Negative Homans. Laboratory Laboratory Tests Test 07/23/17 03:50 White Blood Count 5.1 Red Blood Count 2.86 Hemoglobin 9.7 Hematocrit 28.1 Mean Corpuscular Volume 98.3 Mean Corpuscular Hemoglobin 33.8 Mean Corpuscular Hemoglobin Concent 34.4 Red Cell Distribution Width 12.7 Platelet Count 178 Mean Platelet Volume 7.2 Blood Urea Nitrogen 18 Creatinine 0.65 Random Glucose 133 Calcium Level 7.9 Sodium Level 143 Potassium Level 4.1 Chloride Level 110 Carbon Dioxide Level 30.1 Anion Gap 3 Estimat Glomerular Filtration Rate 127 Vancomycin Level Trough 8.3 Date/Time Source Procedure Growth Status 07/21/17 17:55 Blood Peripheral Aerobic Blood Culture - Preliminary NO GROWTH IN 2 DAYS Resulted 07/21/17 17:55 Blood Peripheral Anaerobic Blood Culture - Preliminary NO GROWTH IN 2 DAYS Resulted 07/21/17 18:23 Wound Knee Gram Stain - Final Complete 07/21/17 18:23 Wound Culture - Final Staphylococcus Aureus Complete Result Diagram: 07/23/17 0350 07/23/17 0350 Imaging Last 72 hours Impressions Knee MRI 07/22/17 0000 Signed Impressions: Service Date/Time: Saturday, July 22, 2017 15:23 - CONCLUSION: 1. Extensive cellulitis around the right knee, especially anteriorly with some loculated fluid in the pre-tibial soft tissues at the level of the tibial tuberosity as measured above, probably small abscess. There is also a small elliptical shaped abscess or prepatellar bursitis at the level of the patella measuring about 3 mm in thickness. 2. No evidence for osteomyelitis. There is a small to moderate-sized knee joint effusion. 3. Advanced osteoarthritis at the patellofemoral joint. Mild to moderate osteoarthritis of the medial and lateral joints. 4. Mild tendinopathy of the patellar ligament. Dayne James MD Assessment & Plan Assessment and Plan 56-year-old male with a PMH of Anxiety, Depression, Bipolar Disorder, Developmental Delay, Schizophrenia and HTN who is brought to the ER by project financial analyst for evaluation of right knee redness and swelling. Pt unable to provide history. Mold Car Pusher noted increase in redness this morning. Patient has had a chronic wound over the right knee which has been for about 1 year now. He reports falling and injuring his knee last year and has had the wound since. He denies any fever, chills or recent trauma. At this point the wound has clean borders and base. No signs of wound infection, septic arthritis or septic bursitis. There is mild but improving surrounding cellulitis. I recommended continued wound care and medical management with iv antibiotics. f/u 2 wks Cezar Velasquez Jr., MD Jul 23, 2017 12:48
--- NOTE | 2017-07-23 15:41 | PD.ID.CON ---
History of Present Illness Service ID Consult Requested By Dr.Abando Dina Reason for Consult Evaluation and Mment of Right knee abscess. Primary Care Physician Non-Staff Diagnoses: History of Present Illness is a 56 y/o CM with PMH of Anxiety, Depression, Bipolar Disorder, Developmental Delay, Schizophrenia and HTN. Patient is a resident of [facility] and has a caregiver. Reported history of fall leading to right knee abrasions. With this background patient was brought to the ER by mr teacher for evaluation of right knee redness and swelling. Pt unable to provide history. Spice Grinder concerned for infection at right knee abrasion site this morning. Pt does report some tenderness to palpation. No reported fever, chills. On arrival, BP 102/63, HR 108, O2 sat 99% on RA. CBC unremarkable. Chemistry essentially unremarkable except for GFR 83. INR 1.2. UA negative. On exam, pt noted to have right leg erythema w/ large abrasion to right knee. S/p Vanc/ Zosyn in ER. MRI of right knee with loculated subq abscess, ? prepatellar bursitis and small to moderate effusion. Patient was evaluated by Orthopedics and non surgical medical management recommended at this time. Wound cultures positive for MSSA. ID consulted for evaluation and Mment of Right knee abscess. Review of Systems ROS Limitations: Clinical Condition, Poor Historian Past Family Social History Allergies: Coded Allergies: No Known Allergies (Verified Allergy, Unknown, 07/21/17) Past Medical History Anxiety, Depression, Bipolar Disorder, Developmental Delay, Schizophrenia HTN Past Surgical History Hernia Repair, Cataract Surgery Reported Medications Reported Meds & Active Scripts Active Reported Bisacodyl EC (Bisacodyl) 5 Mg Tabec 5 Mg PO DAILY PRN Lorazepam 1 Mg Tab 1 Mg PO DAILY PRN Seroquel (Quetiapine Fumarate) 100 Mg Tab 100 Mg PO BID Depakote ER (Divalproex Sodium) 500 Mg Kelin 500 Mg PO BID Chlorpromazine (Chlorpromazine HCl) 200 Mg Tab 200 Mg PO BID PRN Buspirone (Buspirone HCl) 30 Mg Tab 30 Mg PO TID Risperidone 4 Mg Tab 4 Mg PO TID Claritin (Loratadine) 10 Mg Cap 10 Mg PO DAILYHS Simvastatin 20 Mg Tab 20 Mg PO DAILYHS Lisinopril 5 Mg Tab 5 Mg PO DAILY Active Ordered Medications Current Medications Medications (Trade) Dose Ordered Sig/Louise Route Start Time Stop Time Status Last Admin (NS Flush) 2 ml UNSCH PRN IV FLUSH 07/21/17 20:45 (NS Flush) 2 ml BID IV FLUSH 07/21/17 21:00 07/23/17 09:35 (Zofran Inj) 4 mg Q6H PRN IVP 07/21/17 20:45 (Heparin Inj) 5,000 units Q12H SQ 07/22/17 09:00 Future Hold 07/22/17 21:42 (Tylenol) 650 mg Q6H PRN PO 07/21/17 20:45 07/22/17 17:37 (Moapa 5-325 Mg) 1 tab Q4H PRN PO 07/21/17 20:45 07/22/17 21:42 (Morphine Inj) 2 mg Q3H PRN IV PUSH 07/21/17 20:45 07/23/17 06:37 (Yoly-Colace) 1 tab BID PO 07/21/17 21:00 07/23/17 09:35 (Milk Of Magnesia Liq) 30 ml Q12H PRN PO 07/21/17 20:45 (Senokot) 17.2 mg Q12H PRN PO 07/21/17 20:45 (Dulcolax Supp) 10 mg DAILY PRN RECTAL 07/21/17 20:45 (Lactulose Liq) 30 ml DAILY PRN PO 07/21/17 20:45 (Buspar) 30 mg TID PO 07/22/17 09:00 07/23/17 18:13 (Thorazine) 200 mg BID PRN PO 07/21/17 20:45 07/22/17 21:43 (Depakote Er) 500 mg BID PO 07/21/17 21:00 07/23/17 09:35 (Prinivil) 5 mg DAILY PO 07/22/17 09:00 07/22/17 09:16 (Claritin) 10 mg DAILY PO 07/22/17 09:00 07/23/17 09:35 (Ativan) 1 mg DAILY PRN PO 07/21/17 20:45 07/22/17 21:41 (SEROquel) 100 mg BID PO 07/21/17 21:00 07/23/17 09:34 (risperDAL) 4 mg TID PO 07/22/17 09:00 07/23/17 18:13 (Pravachol) 40 mg HS PO 07/21/17 21:15 07/22/17 20:26 Sodium Chloride 1,000 ml @ 70 mls/hr [id number] PRN IV 07/23/17 08:15 Cefazolin Sodium/ Dextrose 50 ml @ 100 mls/hr Q8H IV 07/23/17 16:00 07/23/17 18:00 Family History Reviewed. No h/o DM or CAD Social History Negative for alcohol, tobacco or drugs. Physical Exam Vital Signs Vital Signs Date Time Temp Pulse Resp B/P (MAP) Pulse Ox O2 Delivery O2 Flow Rate FiO2 07/23/17 12:00 96.3 86 18 117/61 (79) 100 07/23/17 08:00 96.5 81 18 107/56 (73) 100 07/23/17 04:05 18 07/22/17 22:50 18 07/22/17 20:22 98.4 83 18 143/91 (108) 100 07/22/17 16:14 98.6 68 20 140/60 (86) 98 Physical Exam GENERAL: This is a well-nourished, well-developed patient, in no apparent distress. SKIN: No rashes, ecchymoses or lesions. Cool and dry. HEAD: Atraumatic. Normocephalic. No temporal or scalp tenderness. EYES: Pupils equal round and reactive. Extraocular motions intact. No scleral icterus. No injection or drainage. ENT: Nose without bleeding, purulent drainage or septal hematoma. Throat without erythema, tonsillar hypertrophy or exudate. Uvula midline. Airway patent. NECK: Trachea midline. Supple, nontender, no meningeal signs. CARDIOVASCULAR: HS audible. RESPIRATORY: Clear to auscultation. Breath sounds equal bilaterally. No wheezes , rales, or rhonchi. GASTROINTESTINAL: Abdomen soft, non-tender, nondistended. No hepato-splenomegaly , or palpable masses. No guarding. MUSCULOSKELETAL: Right knee and right david of tibia area with significant erythema noted. There were two scabs on right knee. There was an area of fluctuance noted on knee below the abrasions. NEUROLOGICAL: Awake and alert. Non focal exam. Normal speech. Psych tangential thinking. Repetition of same statements. ? judgement and insight into disease process. IV line sites with no e.o infection. Laboratory Laboratory Tests Test 07/23/17 03:50 White Blood Count 5.1 Red Blood Count 2.86 Hemoglobin 9.7 Hematocrit 28.1 Mean Corpuscular Volume 98.3 Mean Corpuscular Hemoglobin 33.8 Mean Corpuscular Hemoglobin Concent 34.4 Red Cell Distribution Width 12.7 Platelet Count 178 Mean Platelet Volume 7.2 Blood Urea Nitrogen 18 Creatinine 0.65 Random Glucose 133 Calcium Level 7.9 Sodium Level 143 Potassium Level 4.1 Chloride Level 110 Carbon Dioxide Level 30.1 Anion Gap 3 Estimat Glomerular Filtration Rate 127 Vancomycin Level Trough 8.3 Date/Time Source Procedure Growth Status 07/21/17 17:55 Blood Peripheral Aerobic Blood Culture - Preliminary NO GROWTH IN 2 DAYS Resulted 07/21/17 17:55 Blood Peripheral Anaerobic Blood Culture - Preliminary NO GROWTH IN 2 DAYS Resulted 07/21/17 18:23 Wound Knee Gram Stain - Final Complete 07/21/17 18:23 Wound Culture - Final Staphylococcus Aureus Complete Result Diagram: 07/23/17 0350 07/23/17 0350 Imaging Last Impressions Knee MRI 07/22/17 0000 Signed Impressions: Service Date/Time: Saturday, July 22, 2017 15:23 - CONCLUSION: 1. Extensive cellulitis around the right knee, especially anteriorly with some loculated fluid in the pre-tibial soft tissues at the level of the tibial tuberosity as measured above, probably small abscess. There is also a small elliptical shaped abscess or prepatellar bursitis at the level of the patella measuring about 3 mm in thickness. 2. No evidence for osteomyelitis. There is a small to moderate-sized knee joint effusion. 3. Advanced osteoarthritis at the patellofemoral joint. Mild to moderate osteoarthritis of the medial and lateral joints. 4. Mild tendinopathy of the patellar ligament. Dayne James MD Assessment and Plan Assessment and Plan Right knee loculated subcut abscess Right knee effusion moderate size. Rt knee MSSA septic arthritis. Developmental delay Anxiety, Depression, Schizophrenia. Recs: DC Zosyn IV DC Vanco IV Start Ancef IV (for possible MSSA septic arthritis) Follow cultures Follow clinically. Dw Primary team: needs exploration of abscess appears loculated on CT. Also clinically still has significant fluctuance and erythema. Concern for septic arthritis. Pls ask ortho to reevaluate. Not a candidate for Dalvance as septic arthritis suspected. Source control is important especially if loculated abscess and septic arthritis as on MRI. Dara Dave MD Jul 23, 2017 15:41
[2017-07-23 16:00] VITALS: BP 124/69; PULSE 97; RESP 18; TEMP 96.4; O2SAT 100
[2017-07-23] MEDS ORDERED: VANCOMYCIN INJ 1,250 MG in SODIUM CHLOR 0.9% 250 ML INJ 250 ML IV SCH (17:00)
[2017-07-23] MEDS: ceFAZolin 2 GM PREMIX 50 ML IV SCH ×2 (18:00→23:08)
[2017-07-23 19:42] VITALS: BP 127/70; PULSE 99; RESP 16; TEMP 98.2; O2SAT 98
[2017-07-23] MEDS: LORazepam 1 MG TAB PO PRN (21:04)
[2017-07-23] MEDS: PRAVASTATIN SOD 40 MG TAB PO SCH (21:04)
[2017-07-23] MEDS: ACETAMINOPHEN/HYDROcodone 325 MG/5 MG TAB PO PRN (21:10)
[2017-07-24 02:10] VITALS: BP 124/80; PULSE 77; RESP 16; TEMP 97.8; O2SAT 96
[2017-07-24 04:36] VITALS: BP 135/74; PULSE 92; RESP 14; TEMP 98.8; O2SAT 100
[2017-07-24 08:00] VITALS: BP 154/88; PULSE 81; RESP 20; TEMP 98.8; O2SAT 99
[2017-07-24] MEDS: LISINOPRIL 5 MG TAB PO SCH (09:12)
[2017-07-24] MEDS: DOCUSATE SODIUM 50 MG/SENNA 8.6 MG TAB PO SCH ×2 (09:12→21:13)
[2017-07-24] MEDS: QUEtiapine FUMARATE 100 MG TAB PO SCH ×2 (09:12→21:13)
[2017-07-24] MEDS: DIVALPROEX SODIUM E.R. 500 MG TAB PO SCH ×2 (09:12→21:13)
[2017-07-24] MEDS: busPIRone HCL 10 MG TAB PO SCH ×3 (09:12→17:25)
[2017-07-24] MEDS: LORATADINE 10 MG TAB PO SCH (09:12)
[2017-07-24] MEDS: risperiDONE 1 MG TAB PO SCH ×3 (09:12→17:26)
[2017-07-24] MEDS: SODIUM CHLORIDE 0.9% FLUSH 10 ML FLUSH IV FLUSH SCH ×2 (09:13→21:13)
[2017-07-24] MEDS: ceFAZolin 2 GM PREMIX 50 ML IV SCH ×2 (09:13→17:25)
[2017-07-24 12:00] VITALS: BP 144/70; PULSE 91; RESP 18; TEMP 97; O2SAT 100
--- NOTE | 2017-07-24 14:00 | HHI.PR ---
Subjective Remarks Follow-up knee cellulitis/abscess. Improving pain. Discussed with nursing Objective Vitals Vital Signs Date Time Temp Pulse Resp B/P (MAP) Pulse Ox O2 Delivery O2 Flow Rate FiO2 07/24/17 12:00 97.0 91 18 144/70 (94) 100 07/24/17 08:00 98.8 81 20 154/88 (110) 99 07/24/17 04:36 98.8 92 14 135/74 (94) 100 07/23/17 19:42 98.2 99 16 127/70 (89) 98 07/23/17 16:00 96.4 97 18 124/69 (87) 100 I/O 07/23/17 07/23/17 07/23/17 07/24/17 07/24/17 07/24/17 07:00 15:00 23:00 07:00 15:00 23:00 Intake Total 850 ml 100 ml 720 ml 720 ml 50 ml Output Total 600 ml 50 ml 1400 ml Balance 250 ml 100 ml 670 ml -680 ml 50 ml Intake Oral 500 ml 720 ml 720 ml IV Total 350 ml 100 ml 50 ml Output Urine Total 600 ml 50 ml 1400 ml # Voids 3 10 Result Diagram: 07/23/17 0350 07/23/17 0350 Imaging Last Impressions Knee MRI 07/22/17 0000 Signed Impressions: Service Date/Time: Saturday, July 22, 2017 15:23 - CONCLUSION: 1. Extensive cellulitis around the right knee, especially anteriorly with some loculated fluid in the pre-tibial soft tissues at the level of the tibial tuberosity as measured above, probably small abscess. There is also a small elliptical shaped abscess or prepatellar bursitis at the level of the patella measuring about 3 mm in thickness. 2. No evidence for osteomyelitis. There is a small to moderate-sized knee joint effusion. 3. Advanced osteoarthritis at the patellofemoral joint. Mild to moderate osteoarthritis of the medial and lateral joints. 4. Mild tendinopathy of the patellar ligament. Dayne James MD Objective Remarks GENERAL: This is a well-nourished, well-developed patient, in no apparent distress. SKIN: Warm and dry. CARDIOVASCULAR: Regular rate and rhythm without murmurs, gallops, or rubs. RESPIRATORY: Clear to auscultation. Breath sounds equal bilaterally. No wheezes , rales, or rhonchi. GASTROINTESTINAL: Abdomen soft, non-tender, nondistended. Bowel Sounds normoactive x4. MUSCULOSKELETAL: Extremities without clubbing, cyanosis. Right knee edema, erythema extends to right lower leg which is improving as well as range of motion but there is an area of fluctuance prepatellar. Scab wound in the anterior portion of knee approx [id number]. Right knee with abrasion NEUROLOGICAL: Awake and alert. Moves all extremities. Normal speech. A/P Problem List: (1) Cellulitis ICD Code: L03.90 - Cellulitis, unspecified (2) Dehydration ICD Code: E86.0 - Dehydration (3) Development delay ICD Code: R62.50 - Unspecified lack of expected normal physiological development in childhood Assessment and Plan Patient is a 56-year-old male with a PMH of Anxiety, Depression, Bipolar Disorder, Developmental Delay, Schizophrenia and HTN who is brought to the ER by fisher trap for evaluation of right knee redness and swelling. Right knee cellulitis/prepatellar abscess. Culture with MSSA. Continue with IV Ancef. Orthopedic surgery to do washout. ID following Hypokalemia. Replace. Monitor potassium level Dehydration: GFR 83, BUN 27. Improved IV hydration as needed Dehydration: GFR 83, BUN 27. Improved IV hydration as needed Developmental Delay: Resume home medications. DVT Prophylaxis: SCD/Teds. Hold subcu heparin may need intervention Discharge Planning Possible discharge in 1-2 days Problem Qualifiers (1) Cellulitis: Qualified Codes: L03.115 - Cellulitis of right lower limb Ricci Rossi MD Jul 24, 2017 14:00
[2017-07-24] MEDS: ACETAMINOPHEN/HYDROcodone 325 MG/5 MG TAB PO PRN (14:28)
[2017-07-24 16:00] VITALS: BP 138/69; PULSE 96; RESP 18; TEMP 97.4; O2SAT 100
--- NOTE | 2017-07-24 16:38 | PD.WCN.NOT ---
Wound Consult Description: Received consult for wound management of R knee from Doctor Mcdermott Communicated with: TOM Vargas H pod CDU Recommendation: Please leave scabs to R knee open to air. Leave abscess open to air and keep areas clean and dry. Follow orders and recommendations in place from Doctor Velasquez and infectious disease. Additional Information: Patient seen on H pod for evaluation of R knee wound management.Patient noted with two intact scabs to R knee that are dry. Abscess is noted to periwound distally that is indurated and fluctuant with erythema. Patient has been evaluated by infectious disease Doctor Tenzin and Orthopedic Doctor Eva. Doctor Velasquez recommends patient follow up with him in 2 weeks with no plans to I&D. MRI of R knee shows loculated subcutaneous abscess. Scabs and R knee abscess were left open to air. Recommendations noted above. Deirdre Han [facility] Jul 24, 2017 16:38
--- NOTE | 2017-07-24 16:44 | HHI.IDPN ---
Subjective Subjective Remarks is a 56 y/o CM with PMH of Anxiety, Depression, Bipolar Disorder, Developmental Delay, Schizophrenia and HTN. Patient is a resident of a [facility] and has a caregiver. Reported history of fall leading to right knee abrasions. With this background patient was brought to the ER by public policy professor for evaluation of right knee redness and swelling. Pt unable to provide history. Molecular Geneticist concerned for infection at right knee abrasion site this morning. Pt does report some tenderness to palpation. No reported fever, chills. On arrival, BP 102/63, HR 108, O2 sat 99% on RA. CBC unremarkable. Chemistry essentially unremarkable except for GFR 83. INR 1.2. UA negative. On exam, pt noted to have right leg erythema w/ large abrasion to right knee. S/p Vanc/ Zosyn in ER. MRI of right knee with loculated subq abscess, ? prepatellar bursitis and small to moderate effusion. Patient was evaluated by Orthopedics and non surgical medical management recommended at this time. Wound cultures positive for MSSA. ID consulted for evaluation and Mment of Right knee abscess. Overnight events reviewed No fever No rash No diarrhea Antibiotics Ancef IV Lines Line sites with no e.o infection Past Medical History reviewed Allergies: Coded Allergies: No Known Allergies (Verified Allergy, Unknown, 07/21/17) Objective . Vital Signs Date Time Temp Pulse Resp B/P (MAP) Pulse Ox O2 Delivery O2 Flow Rate FiO2 07/24/17 12:00 97.0 91 18 144/70 (94) 100 07/24/17 08:00 98.8 81 20 154/88 (110) 99 07/24/17 04:36 98.8 92 14 135/74 (94) 100 07/23/17 19:42 98.2 99 16 127/70 (89) 98 07/24/17 07/24/17 07/25/17 14:59 22:59 06:59 Intake Total 50 ml Balance 50 ml IV Total 50 ml . Laboratory Tests Test 07/23/17 03:50 White Blood Count 5.1 TH/MM3 Red Blood Count 2.86 MIL/MM3 Hemoglobin 9.7 GM/DL Hematocrit 28.1 % Mean Corpuscular Volume 98.3 FL Mean Corpuscular Hemoglobin 33.8 PG Mean Corpuscular Hemoglobin Concent 34.4 % Red Cell Distribution Width 12.7 % Platelet Count 178 TH/MM3 Mean Platelet Volume 7.2 FL Laboratory Tests Test 07/23/17 03:50 07/24/17 15:03 Blood Urea Nitrogen 18 MG/DL Creatinine 0.65 MG/DL Random Glucose 133 MG/DL Calcium Level 7.9 MG/DL Sodium Level 143 MEQ/L Potassium Level 4.1 MEQ/L Chloride Level 110 MEQ/L Carbon Dioxide Level 30.1 MEQ/L Anion Gap 3 MEQ/L Estimat Glomerular Filtration Rate 127 ML/MIN C-Reactive Protein 7.71 MG/DL Microbiology Date/Time Source Procedure Growth Status 07/21/17 17:55 Blood Peripheral Aerobic Blood Culture - Preliminary NO GROWTH IN 3 DAYS Resulted 07/21/17 17:55 Blood Peripheral Anaerobic Blood Culture - Preliminary NO GROWTH IN 3 DAYS Resulted 07/21/17 17:50 Blood Peripheral Aerobic Blood Culture - Preliminary NO GROWTH IN 3 DAYS Resulted 07/21/17 17:50 Blood Peripheral Anaerobic Blood Culture - Preliminary NO GROWTH IN 3 DAYS Resulted 07/21/17 18:23 Wound Knee Gram Stain - Final Complete 07/21/17 18:23 Wound Culture - Final Staphylococcus Aureus Complete Imaging Last Impressions Knee MRI 07/22/17 0000 Signed Impressions: Service Date/Time: Saturday, July 22, 2017 15:23 - CONCLUSION: 1. Extensive cellulitis around the right knee, especially anteriorly with some loculated fluid in the pre-tibial soft tissues at the level of the tibial tuberosity as measured above, probably small abscess. There is also a small elliptical shaped abscess or prepatellar bursitis at the level of the patella measuring about 3 mm in thickness. 2. No evidence for osteomyelitis. There is a small to moderate-sized knee joint effusion. 3. Advanced osteoarthritis at the patellofemoral joint. Mild to moderate osteoarthritis of the medial and lateral joints. 4. Mild tendinopathy of the patellar ligament. Dayne James MD Physical Exam GENERAL: This is a well-nourished, well-developed patient, in no apparent distress. SKIN: No rashes, ecchymoses or lesions. Cool and dry. HEAD: Atraumatic. Normocephalic. No temporal or scalp tenderness. EYES: Pupils equal round and reactive. Extraocular motions intact. No scleral icterus. No injection or drainage. ENT: Nose without bleeding, purulent drainage or septal hematoma. Throat without erythema, tonsillar hypertrophy or exudate. Uvula midline. Airway patent. NECK: Trachea midline. Supple, nontender, no meningeal signs. CARDIOVASCULAR: HS audible. RESPIRATORY: Clear to auscultation. Breath sounds equal bilaterally. No wheezes , rales, or rhonchi. GASTROINTESTINAL: Abdomen soft, non-tender, nondistended. No hepato-splenomegaly , or palpable masses. No guarding. MUSCULOSKELETAL: Right knee and right david of tibia area with significant erythema noted. There were two scabs on right knee. There was an area of fluctuance noted on knee below the abrasions. NEUROLOGICAL: Awake and alert. Non focal exam. Normal speech. Psych tangential thinking. Repetition of same statements. ? judgement and insight into disease process. IV line sites with no e.o infection. Assessment & Plan Remarks Right knee loculated subcut abscess Right knee effusion moderate size. Rt knee MSSA septic arthritis. Developmental delay Anxiety, Depression, Schizophrenia. Recs: Continue Ancef IV (for possible MSSA septic arthritis) Follow cultures Follow clinically. Dw Primary team and ortho: needs exploration of abscess appears loculated on CT. Also clinically still has significant fluctuance and erythema. Concern for septic arthritis. Pls ask ortho to reevaluate. Not a candidate for Dalvance as septic arthritis suspected. Source control is important especially if loculated abscess and septic arthritis as on MRI. Dara Dave MD Jul 24, 2017 16:44
[2017-07-24 20:10] VITALS: BP 124/80; PULSE 76; RESP 16; TEMP 98.4; O2SAT 96
[2017-07-24] MEDS: PRAVASTATIN SOD 40 MG TAB PO SCH (21:13)
[2017-07-25] MEDS: ceFAZolin 2 GM PREMIX 50 ML IV SCH ×3 (00:53→16:16)
[2017-07-25 01:23] VITALS: BP 132/80; PULSE 99; RESP 16; TEMP 97.8; O2SAT 99
[2017-07-25] MEDS: ACETAMINOPHEN/HYDROcodone 325 MG/5 MG TAB PO PRN (04:29)
[2017-07-25 04:39] VITALS: BP 133/62; PULSE 99; RESP 16; TEMP 98.6; O2SAT 100
[2017-07-25] MEDS ORDERED: PHARMACY ORDERED LAB ONE (04:45)
[2017-07-25 07:40] VITALS: BP 128/67; PULSE 96; RESP 18; TEMP 97.7; O2SAT 100
--- NOTE | 2017-07-25 08:07 | HHI.PR ---
Subjective Remarks F/U knee cellulitis/abscess. Improving pain. Agrees with planned procedure and wants to go home aniyah. Dw RN, NPO Objective Vitals Vital Signs Date Time Temp Pulse Resp B/P (MAP) Pulse Ox O2 Delivery O2 Flow Rate FiO2 07/25/17 07:40 97.7 96 18 128/67 (87) 100 07/25/17 04:39 98.6 99 16 133/62 (85) 100 07/25/17 01:23 97.8 99 16 132/80 (97) 99 07/24/17 20:10 98.4 76 16 124/80 (95) 96 07/24/17 16:00 97.4 96 18 138/69 (92) 100 07/24/17 12:00 97.0 91 18 144/70 (94) 100 I/O 07/24/17 07/24/17 07/24/17 07/25/17 07/25/17 07/25/17 07:00 15:00 23:00 07:00 15:00 23:00 Intake Total 720 ml 50 ml 720 ml Output Total 1400 ml 700 ml Balance -680 ml 50 ml 720 ml -700 ml Intake Oral 720 ml 720 ml IV Total 50 ml Output Urine Total 1400 ml 700 ml # Voids 10 4 4 Result Diagram: 07/23/17 0350 07/23/17 0350 Imaging Last Impressions Knee MRI 07/22/17 0000 Signed Impressions: Service Date/Time: Saturday, July 22, 2017 15:23 - CONCLUSION: 1. Extensive cellulitis around the right knee, especially anteriorly with some loculated fluid in the pre-tibial soft tissues at the level of the tibial tuberosity as measured above, probably small abscess. There is also a small elliptical shaped abscess or prepatellar bursitis at the level of the patella measuring about 3 mm in thickness. 2. No evidence for osteomyelitis. There is a small to moderate-sized knee joint effusion. 3. Advanced osteoarthritis at the patellofemoral joint. Mild to moderate osteoarthritis of the medial and lateral joints. 4. Mild tendinopathy of the patellar ligament. Dayne James MD Objective Remarks GENERAL: This is a well-nourished, well-developed patient, in no apparent distress. SKIN: Warm and dry. CARDIOVASCULAR: Regular rate and rhythm without murmurs, gallops, or rubs. RESPIRATORY: Clear to auscultation. Breath sounds equal bilaterally. No wheezes , rales, or rhonchi. GASTROINTESTINAL: Abdomen soft, non-tender, nondistended. Bowel Sounds normoactive x4. MUSCULOSKELETAL: Extremities without clubbing, cyanosis. Improving right knee edema and erythema as well as range of motion but there is an area of fluctuance prepatellar. Scab wound in the anterior portion of knee approx 5cm x 5cm. NEUROLOGICAL: Awake and alert. Moves all extremities. Normal speech. A/P Problem List: (1) Cellulitis ICD Code: L03.90 - Cellulitis, unspecified (2) Dehydration ICD Code: E86.0 - Dehydration (3) Development delay ICD Code: R62.50 - Unspecified lack of expected normal physiological development in childhood Assessment and Plan Patient is a 56-year-old male with a PMH of Anxiety, Depression, Bipolar Disorder, Developmental Delay, Schizophrenia and HTN who is brought to the ER by take away man for evaluation of right knee redness and swelling. Right knee cellulitis/prepatellar abscess. Culture with MSSA. Continue with IV Ancef. Orthopedic surgery to do washout today, NPO. ID following Hypokalemia. Replace. Monitor potassium level Dehydration: GFR 83, BUN 27. Improved IV hydration as needed Developmental Delay: Resume home medications. DVT Prophylaxis: SCD/Teds. Hold subcu heparin for surgical intervention Discharge Planning Discharge after washout Problem Qualifiers (1) Cellulitis: Qualified Codes: L03.115 - Cellulitis of right lower limb Ricci Rossi MD Jul 25, 2017 08:07
[2017-07-25] MEDS: SODIUM CHLORIDE 0.9% FLUSH 10 ML FLUSH IV FLUSH SCH ×2 (08:24→21:53)
[2017-07-25] MEDS: LISINOPRIL 5 MG TAB PO SCH (08:25)
[2017-07-25] MEDS: QUEtiapine FUMARATE 100 MG TAB PO SCH ×2 (08:25→21:55)
[2017-07-25] MEDS: risperiDONE 1 MG TAB PO SCH ×3 (08:25→18:21)
[2017-07-25] MEDS: LORATADINE 10 MG TAB PO SCH (08:25)
[2017-07-25] MEDS: DOCUSATE SODIUM 50 MG/SENNA 8.6 MG TAB PO SCH ×2 (08:25→21:55)
[2017-07-25] MEDS: busPIRone HCL 10 MG TAB PO SCH ×3 (08:25→18:22)
[2017-07-25] MEDS: DIVALPROEX SODIUM E.R. 500 MG TAB PO SCH ×2 (08:26→21:55)
[2017-07-25] MEDS ORDERED: POVIDONE IODINE 5% (ANTISEPSIS KIT) 4 APPLICATIONS EACH NARE PRN (10:15)
[2017-07-25] MEDS ORDERED: INSULIN HUMAN REGULAR 1,000 UNITS/10 ML VIAL SQ PRN (10:15)
[2017-07-25] MEDS ORDERED: METOPROLOL TARTRATE 25 MG TAB PO PRN (10:15)
[2017-07-25] MEDS ORDERED: SODIUM CHLORID 0.9% 500 ML IV PRN (10:15)
[2017-07-25] MEDS ORDERED: CHLORHEXIDINE GLUCONATE 2 % 1 PACK (2 CLOTHS) TOPICAL PRN (10:15)
[2017-07-25] MEDS ORDERED: LACTATED RINGER'S 1000 ML IV PRN (10:15)
[2017-07-25] MEDS ORDERED: PHENYLEPH/NS 1000 MCG/10 ML SYR IV ONE (12:00)
[2017-07-25] MEDS ORDERED: ONDANSETRON HCL 4 MG/2 ML VIAL IV ONE (12:00)
[2017-07-25] MEDS ORDERED: LIDOCAINE HCL 1% PF 5 ML SYRINGE OTHER ONE (12:00)
[2017-07-25] MEDS ORDERED: ceFAZolin INJ 1,000 MG VIAL IV ONE (12:00)
[2017-07-25] MEDS ORDERED: PROPOFOL 200 MG/20 ML AMP IV ONE (12:00)
[2017-07-25] MEDS ORDERED: GENTAMICIN SULFATE 80 MG/2 ML VIAL ONE (12:43)
[2017-07-25] MEDS ORDERED: SENNOSIDES 8.6 MG TAB PO PRN (13:15)
[2017-07-25] MEDS ORDERED: MORPHINE SULFATE 8 MG/ML INJ IV PUSH PRN (13:15)
[2017-07-25] MEDS ORDERED: PROMETHAZINE HCL 25 MG TAB PO PRN (13:15)
[2017-07-25] MEDS ORDERED: BISACODYL 10 MG SUPP RECTAL PRN (13:15)
[2017-07-25] MEDS ORDERED: ZOLPIDEM TARTRATE 5 MG TAB PO PRN (13:15)
[2017-07-25] MEDS ORDERED: LACTULOSE SYRUP 20 GM/30 ML CUP PO PRN (13:15)
[2017-07-25] MEDS ORDERED: MAGNESIUM HYDROXIDE SUSP 30 ML CUP PO PRN (13:15)
[2017-07-25] MEDS ORDERED: oxyCODONE/ACETAMINOPHEN 5 MG/325 MG TAB PO PRN ×2 (13:15)
[2017-07-25] MEDS ORDERED: SODIUM CHLORIDE 0.9% FLUSH 10 ML FLUSH IV FLUSH PRN (13:15)
[2017-07-25] MEDS ORDERED: Post-op Orders (for Pharmacy) XX ONE (13:15)
--- NOTE | 2017-07-25 13:33 | EKG ---
Date Performed: 07/25/2017 Time Performed: 10:02:31 PTAGE: 56 years EKG: Sinus rhythm BORDERLINE ECG NO PREVIOUS TRACING DOCTOR: Shahab Sánchez Interpretating Date/Time 07/25/2017 13:31:58
[2017-07-25] MEDS ORDERED: DO NOT ADM ANY ANTICOAGULANT DRUGS PRN (13:55)
[2017-07-25] MEDS: KETOROLAC TROMETHAMINE 30 MG/ML (IVP) VIAL IVP SCH ×3 (14:00→21:54)
[2017-07-25 16:10] VITALS: BP 146/70; PULSE 98; RESP 18; TEMP 97.5; O2SAT 100
[2017-07-25 21:10] VITALS: BP 128/72; PULSE 99; RESP 16; TEMP 97.9; O2SAT 98
[2017-07-25] MEDS: PRAVASTATIN SOD 40 MG TAB PO SCH (21:55)
--- NOTE | 2017-07-25 22:00 | HHI.PR ---
cc: Cezar Velasquez Jr., MD Immediate Post Op Note Procedure Date: Jul 25, 2017 Pre Op Diagnosis: septic right prepatellar bursitis Post Op Diagnosis: same Surgeon: Cezar Velasquez [employer] Assoc(s): staff Procedure: right prepatellar bursa irrigation and drainage Findings: infected prepatellar bursa. Cultures taken. Complications: None Estimated blood loss: minimal Patient to: PACU Patient Condition: Good Cezar Velasquez Jr., MD Jul 25, 2017 22:00
--- NOTE | 2017-07-25 22:01 | PD.OP ---
cc: Cezar Velasquez Jr., MD Operative Report Date of Surgery: Jul 25, 2017 Preoperative Diagnosis: right septic prepatellar bursa Postoperative Diagnosis: same Procedure: right prepatellar bursa irrigation and drainage Anesthesia: general Surgeon: Cezar Velasquez Toxicology Teacher(s): hospital staff Resident Surgeon: none Operation and Findings: Patient was seen and evaluated preoperatively. Patient was found to have infection of the RIGHT prepatellar bursa. Imaging confirmed the diagnosis. Informed consent was obtained after detailed discussion of risk and benefits of surgery. Operative site was marked. A timeout was performed and agreed upon either the surgical team to identify the patient's name, age, operative site, operating surgeon, medical record number and planned procedure. IV sedation and GETA were administered by anesthesiologist. Operative arm was prepped with alcohol followed by Hibiclens and draped in usual sterile fashion. Procedure began with a midline incision overlying the affected prepatellar and infrapatella bursa. Dissection carried down through subcutaneous tissue. A small amount of purulent material and necrotic debris was found and expressed. Specimen was obtained for laboratory examination & cultures. The area was thoroughly irrigated with pulse lavage with copious amount of fluid. The subcutaneous tissues closed with 2-0 PDS and skin was closed with 3-0 nylon. Sterile dressings were applied. Patient was awakened and transferred to recovery in stable condition. Needle and sponge counts were correct. DRAINS: none POSTP-OP PLAN OF ACTIVITY Antibiotics: per ID Antiocoagulation: Lovenox Weight bearing status: WBAT. CKS in place at all times for 2 weeks. Dressing: Removed drains POD 4, then daily dressing changes Dispo: stable to dc per ortho Cezar Velasquez Jr., MD Jul 25, 2017 22:01
[2017-07-26 00:32] VITALS: BP 112/61; PULSE 101; RESP 16; TEMP 98.7; O2SAT 98
[2017-07-26] MEDS: KETOROLAC TROMETHAMINE 30 MG/ML (IVP) VIAL IVP SCH ×3 (01:41→14:29)
[2017-07-26] MEDS: ceFAZolin 2 GM PREMIX 50 ML IV SCH ×3 (01:41→16:00)
[2017-07-26] MEDS: ENOXAPARIN SODIUM 30 MG/0.3 ML SYRINGE SQ SCH ×2 (01:42→14:29)
[2017-07-26 03:31] VITALS: BP 125/69; PULSE 95; RESP 16; TEMP 97.7; O2SAT 98
[2017-07-26 07:53] VITALS: BP 120/67; PULSE 92; RESP 18; TEMP 97.7; O2SAT 100
--- NOTE | 2017-07-26 08:25 | HHI.PR ---
Subjective Remarks Follow-up right knee prepatellar septic bursitis. States he is feeling much better and wants to go home. Discussed with nursing cleared for discharge Objective Vitals Vital Signs Date Time Temp Pulse Resp B/P (MAP) Pulse Ox O2 Delivery O2 Flow Rate FiO2 07/26/17 07:53 97.7 92 18 120/67 (84) 100 07/26/17 03:31 97.7 95 16 125/69 (87) 98 07/26/17 00:32 98.7 101 16 112/61 (78) 98 07/25/17 21:10 97.9 99 16 128/72 (90) 98 07/25/17 16:10 97.5 98 18 146/70 (95) 100 07/25/17 14:15 97.9 91 16 100 Room Air 07/25/17 14:00 90 16 156/84 (108) 100 Room Air 07/25/17 13:55 98.0 86 16 142/77 (98) 100 Nasal Cannula 2 I/O 07/25/17 07/25/17 07/25/17 07/26/17 07/26/17 07/26/17 07:00 15:00 23:00 07:00 15:00 23:00 Intake Total 550 ml 50 ml Output Total 700 ml 5 ml Balance -700 ml 545 ml 50 ml IV Total 550 ml 50 ml Output Urine Total 700 ml Estimated Blood Loss 5 ml # Voids 4 2 Result Diagram: 07/23/17 0350 07/23/17 0350 Imaging Last Impressions Knee MRI 07/22/17 0000 Signed Impressions: Service Date/Time: Saturday, July 22, 2017 15:23 - CONCLUSION: 1. Extensive cellulitis around the right knee, especially anteriorly with some loculated fluid in the pre-tibial soft tissues at the level of the tibial tuberosity as measured above, probably small abscess. There is also a small elliptical shaped abscess or prepatellar bursitis at the level of the patella measuring about 3 mm in thickness. 2. No evidence for osteomyelitis. There is a small to moderate-sized knee joint effusion. 3. Advanced osteoarthritis at the patellofemoral joint. Mild to moderate osteoarthritis of the medial and lateral joints. 4. Mild tendinopathy of the patellar ligament. Dayne James MD Objective Remarks GENERAL: This is a well-nourished, well-developed patient, in no apparent distress. SKIN: Warm and dry. CARDIOVASCULAR: Regular rate and rhythm without murmurs, gallops, or rubs. RESPIRATORY: Clear to auscultation. Breath sounds equal bilaterally. No wheezes , rales, or rhonchi. GASTROINTESTINAL: Abdomen soft, non-tender, nondistended. Bowel Sounds normoactive x4. MUSCULOSKELETAL: Extremities without clubbing, cyanosis. Improving right knee edema and erythema as well as range of motion NEUROLOGICAL: Awake and alert. Moves all extremities. Normal speech. Procedures Incision and drainage of right prepatellar bursitis A/P Problem List: (1) Cellulitis ICD Code: L03.90 - Cellulitis, unspecified (2) Dehydration ICD Code: E86.0 - Dehydration (3) Development delay ICD Code: R62.50 - Unspecified lack of expected normal physiological development in childhood Assessment and Plan Patient is a 56-year-old male with a PMH of Anxiety, Depression, Bipolar Disorder, Developmental Delay, Schizophrenia and HTN who is brought to the ER by warper creeler for evaluation of right knee redness and swelling. Right prepatellar septic bursitis/knee cellulitis. Culture with MSSA s/p I and D. Stable. Continue with IV Ancef. ID following Hypokalemia. Replace. Monitor potassium level Dehydration: GFR 83, BUN 27. Improved IV hydration as needed Developmental Delay: Resume home medications. DVT Prophylaxis: SCD/Teds. Lovenox Discharge Planning Discharge when cleared by orthopedic surgery and infectious disease Problem Qualifiers (1) Cellulitis: Qualified Codes: L03.115 - Cellulitis of right lower limb Ricci Rossi MD Jul 26, 2017 08:25
[2017-07-26] MEDS: busPIRone HCL 10 MG TAB PO SCH ×2 (09:39→14:28)
[2017-07-26] MEDS: DIVALPROEX SODIUM E.R. 500 MG TAB PO SCH (09:40)
[2017-07-26] MEDS: DOCUSATE SODIUM 50 MG/SENNA 8.6 MG TAB PO SCH (09:40)
[2017-07-26] MEDS: risperiDONE 1 MG TAB PO SCH ×2 (09:40→14:29)
[2017-07-26] MEDS: LISINOPRIL 5 MG TAB PO SCH (09:40)
[2017-07-26] MEDS: LORATADINE 10 MG TAB PO SCH (09:41)
[2017-07-26] MEDS: SODIUM CHLORIDE 0.9% FLUSH 10 ML FLUSH IV FLUSH SCH (09:41)
[2017-07-26] MEDS: QUEtiapine FUMARATE 100 MG TAB PO SCH (09:41)
[2017-07-26 10:39] VITALS: O2SAT 91
[2017-07-26 12:26] VITALS: BP 118/67; PULSE 98; RESP 18; TEMP 97.5; O2SAT 100
[2017-07-26] MEDS ORDERED: BACT800T5 PO (15:25)
[2017-07-26] MEDS ORDERED: LEVA750T9 PO (15:25)
--- NOTE | 2017-07-26 15:25 | HHI.IDPN ---
Subjective Subjective Remarks is a 56 y/o CM with PMH of Anxiety, Depression, Bipolar Disorder, Developmental Delay, Schizophrenia and HTN. Patient is a resident of a senior care and has a caregiver. Reported history of fall leading to right knee abrasions. With this background patient was brought to the ER by nail artist for evaluation of right knee redness and swelling. Pt unable to provide history. Customer Service Voice concerned for infection at right knee abrasion site this morning. Pt does report some tenderness to palpation. No reported fever, chills. On arrival, BP 102/63, HR 108, O2 sat 99% on RA. CBC unremarkable. Chemistry essentially unremarkable except for GFR 83. INR 1.2. UA negative. On exam, pt noted to have right leg erythema w/ large abrasion to right knee. S/p Vanc/ Zosyn in ER. MRI of right knee with loculated subq abscess, ? prepatellar bursitis and small to moderate effusion. Patient was evaluated by Orthopedics and non surgical medical management recommended at this time. Wound cultures positive for MSSA. ID consulted for evaluation and Mment of Right knee abscess. Overnight events reviewed No fever No rash No diarrhea Antibiotics Ancef IV Lines Line sites with no e.o infection Past Medical History reviewed Allergies: Coded Allergies: No Known Allergies (Verified Allergy, Unknown, 07/21/17) Objective . Vital Signs Date Time Temp Pulse Resp B/P (MAP) Pulse Ox O2 Delivery O2 Flow Rate FiO2 07/26/17 12:26 97.5 98 18 118/67 (84) 100 07/26/17 10:39 91 07/26/17 07:53 97.7 92 18 120/67 (84) 100 07/26/17 03:31 97.7 95 16 125/69 (87) 98 07/26/17 00:32 98.7 101 16 112/61 (78) 98 07/25/17 21:10 97.9 99 16 128/72 (90) 98 07/25/17 16:10 97.5 98 18 146/70 (95) 100 . Microbiology Date/Time Source Procedure Growth Status 07/25/17 13:16 Wound Knee Fungal Smear - Final NO FUNGAL ELEMENTS SEEN. Resulted 07/25/17 13:16 Wound Knee Fungal Culture Pending Resulted 07/25/17 13:16 Wound Knee Acid Fast Stain Pending Worksheet 07/25/17 13:16 Wound Knee Mycobacterial Culture Pending Worksheet 07/25/17 13:16 Wound Knee Gram Stain - Final Resulted 07/25/17 13:16 Wound Culture - Preliminary Staphylococcus Aureus Resulted Imaging Last Impressions Knee MRI 07/22/17 0000 Signed Impressions: Service Date/Time: Saturday, July 22, 2017 15:23 - CONCLUSION: 1. Extensive cellulitis around the right knee, especially anteriorly with some loculated fluid in the pre-tibial soft tissues at the level of the tibial tuberosity as measured above, probably small abscess. There is also a small elliptical shaped abscess or prepatellar bursitis at the level of the patella measuring about 3 mm in thickness. 2. No evidence for osteomyelitis. There is a small to moderate-sized knee joint effusion. 3. Advanced osteoarthritis at the patellofemoral joint. Mild to moderate osteoarthritis of the medial and lateral joints. 4. Mild tendinopathy of the patellar ligament. Dayne James MD Physical Exam GENERAL: This is a well-nourished, well-developed patient, in no apparent distress. SKIN: No rashes, ecchymoses or lesions. Cool and dry. HEAD: Atraumatic. Normocephalic. No temporal or scalp tenderness. EYES: Pupils equal round and reactive. Extraocular motions intact. No scleral icterus. No injection or drainage. ENT: Nose without bleeding, purulent drainage or septal hematoma. Throat without erythema, tonsillar hypertrophy or exudate. Uvula midline. Airway patent. NECK: Trachea midline. Supple, nontender, no meningeal signs. CARDIOVASCULAR: HS audible. RESPIRATORY: Clear to auscultation. Breath sounds equal bilaterally. No wheezes , rales, or rhonchi. GASTROINTESTINAL: Abdomen soft, non-tender, nondistended. No hepato-splenomegaly , or palpable masses. No guarding. MUSCULOSKELETAL: Right knee and right david of tibia area with sig IV line sites with no e.o infection. Assessment & Plan Remarks Right knee loculated subcut abscess Right knee effusion moderate size. Rt knee MSSA septic arthritis. Developmental delay Anxiety, Depression, Schizophrenia. Recs: Dc Ancef IV (for possible MSSA septic arthritis) Bactrim DS 1 po bid x 3 weeks Levaquin po 3 weeks. Probiotics Will sign off please call back if any change in clinical condition or questions. Dara Dave MD Jul 26, 2017 15:25
--- NOTE | 2017-07-26 15:30 | HHI.DCPOC ---
Discharge Care Plan Diagnosis: (1) Prepatellar abscess (2) Cellulitis of right knee Goals to Promote Your Health * To prevent worsening of your condition and complications * To maintain your health at the optimal level Directions to Meet Your Goals Take your medications as prescribed Follow your dietary instruction Follow activity as directed Keep your appointments as scheduled Take your immunizations and boosters as scheduled If your symptoms worsen call your PCP, if no PCP go to Urgent Care Center or Emergency Room Smoking is Dangerous to Your Health. Avoid second hand smoke Call the 24-hour hour crisis hotline for domestic abuse at Jesenia Carlisle PA-C Jul 26, 2017 15:30
[2017-07-26] MEDS ORDERED: LACTCHW3 CHEW (15:42)
[2017-07-26 15:47] VITALS: BP 111/67; PULSE 99; RESP 18; TEMP 97.7; O2SAT 98
--- NOTE | 2017-07-26 16:13 | HHI.DS ---
Discharge Summary Admission Date Jul 22, 2017 at 16:41 Discharge Date: Jul 26, 2017 Admitting Diagnosis Right lower leg cellulitis (1) Cellulitis ICD Code: L03.90 - Cellulitis, unspecified Diagnosis: Principal (2) Dehydration ICD Code: E86.0 - Dehydration Diagnosis: Principal (3) Development delay ICD Code: R62.50 - Unspecified lack of expected normal physiological development in childhood Diagnosis: Principal Procedures Incision and drainage of right prepatellar bursitis Brief History - From Admission This is a 56-year-old male with a PMH of Anxiety, Depression, Bipolar Disorder, Developmental Delay, Schizophrenia and HTN who is brought to the ER by fx artist for evaluation of right knee redness and swelling. Pt unable to provide history. Medical Technician Assistant noted infection this morning, actual time of onset unknown. Pt does report some tenderness to palpation. No reported fever, chills. On arrival, BP 102/63, HR 108, O2 sat 99% on RA. CBC unremarkable. Chemistry essentially unremarkable except for GFR 83. INR 1.2. UA negative. On exam, pt noted to have right leg erythema w/ large abrasion to right knee. S /p Vanc/Zosyn in ER. CBC/BMP: 07/23/17 0350 07/23/17 0350 Significant Findings Laboratory Tests Test 07/24/17 15:03 C-Reactive Protein 7.71 MG/DL (0.00-0.30) Imaging Last Impressions Knee MRI 07/22/17 0000 Signed Impressions: Service Date/Time: Saturday, July 22, 2017 15:23 - CONCLUSION: 1. Extensive cellulitis around the right knee, especially anteriorly with some loculated fluid in the pre-tibial soft tissues at the level of the tibial tuberosity as measured above, probably small abscess. There is also a small elliptical shaped abscess or prepatellar bursitis at the level of the patella measuring about 3 mm in thickness. 2. No evidence for osteomyelitis. There is a small to moderate-sized knee joint effusion. 3. Advanced osteoarthritis at the patellofemoral joint. Mild to moderate osteoarthritis of the medial and lateral joints. 4. Mild tendinopathy of the patellar ligament. Dayne James MD PE at Discharge GENERAL: This is a well-nourished, well-developed patient, in no apparent distress. SKIN: Warm and dry. CARDIOVASCULAR: Regular rate and rhythm without murmurs, gallops, or rubs. RESPIRATORY: Clear to auscultation. Breath sounds equal bilaterally. No wheezes , rales, or rhonchi. GASTROINTESTINAL: Abdomen soft, non-tender, nondistended. Bowel Sounds normoactive x4. MUSCULOSKELETAL: Extremities without clubbing, cyanosis. Improving right knee edema and erythema as well as range of motion NEUROLOGICAL: Awake and alert. Moves all extremities. Normal speech. Hospital Course Patient is a 56-year-old male with a PMH of Anxiety, Depression, Bipolar Disorder, Developmental Delay, Schizophrenia and HTN who is brought to the ER by fx artist for evaluation of right knee redness and swelling. Right prepatellar septic bursitis/knee cellulitis. Culture with MSSA s/p I and D. Stable. Bactrim and Levaquin for 3 weeks s/p IV Ancef. ID following Hypokalemia. Replace. Monitor potassium level Dehydration: GFR 83, BUN 27. Improved IV hydration as needed Developmental Delay: Resume home medications. DVT Prophylaxis: SCD/Teds. Lovenox Pt Condition on Discharge: Stable Discharge Disposition: ACLF/PRISON Discharge Time: > 30 minutes Discharge Instructions DIET: Follow Instructions for: As Tolerated, No Restrictions Activities you can perform: Regular-No Restrictions Follow up Referrals: Orthopedics - 1 Week with Cezar Velasquez Jr., MD PCP Follow-up - 1 Week New Medications: Lactobacillus Acidophilus (Lactinex) 1 Chew 1 TAB CHEW TID for Nutritional Supplement for 21 Days, TAB 0 Refills Levofloxacin (Levaquin) 750 Mg Tablet 750 MG PO DAILY for Infection for 21 Days, #21 TAB 0 Refills Sulfamethoxazole-Trimethoprim (Bactrim DS) 800-160 Mg Tab 1 TAB PO BID for Infection for 21 Days, #42 TAB 0 Refills Continued Medications: Bisacodyl DR (Bisacodyl EC) 5 Mg Tabec 5 MG PO DAILY PRN for CONSTIPATION, TAB 0 Refills Buspirone (Buspirone) 30 Mg Tab 30 MG PO TID for Anxiety, TAB 0 Refills Chlorpromazine (Chlorpromazine) 200 Mg Tab 200 MG PO BID PRN for NAUSEA OR VOMITING, TAB 0 Refills Divalproex ER (Depakote ER) 500 Mg Kelin 500 MG PO BID for Control Seizures, #30 TAB 0 Refills Lisinopril (Lisinopril) 5 Mg Tab 5 MG PO DAILY for Blood Pressure Management, #30 TAB 0 Refills Loratadine (Claritin) 10 Mg Cap 10 MG PO DAILYhs for Allergy Management, CAP 0 Refills Lorazepam (Lorazepam) 1 Mg Tab 1 MG PO DAILY PRN for ANXIETY, TAB 0 Refills Quetiapine (Seroquel) 100 Mg Tab 100 MG PO BID, #60 TAB 0 Refills Risperidone (Risperidone) 4 Mg Tab 4 MG PO TID, #60 TAB 0 Refills Simvastatin (Simvastatin) 20 Mg Tab 20 MG PO DAILYhs for Cholesterol Management, #30 TAB 0 Refills Ricci Rossi MD Jul 26, 2017 16:13
--- NOTE | 2017-07-26 16:48 | HHI.FF ---
Face to Face Verification Diagnosis: (1) Prepatellar abscess (2) Cellulitis of right knee Physical Therapy Order: Evaluate and Treat, Improve ambulation, Strength and gait training Home Health Nursing Order: Medical education Signs/symptoms of disease process Wound care and dressing changes (Change dressing daily starting on 07/29 with xeroform, 4x4 gauze, and primapore. Call Dr. Velasquez with any questions.) Nursing assessment with vital signs I have seen patient Dayne Jefferson on 07/26/17. My clinical findings support the need for the requested home health care services because: Deconditioned w/ increased weakness Limited ability to care for self Impaired cognition/judgement Infection w/ risk of complications I certify that my clinical findings support that this patient is homebound because: Impaired cognitive ability/safety Unsteady gait/balance Unsafe to leave home unassisted Unable to use public transportation Jesenia Carlisle PA-C Jul 26, 2017 4:48 pm
== END 2017-07-26 19:03 | DRG 558 ==
LOC: NEPD 16:20 → NEDA 20:45 → NEPHCDU 07-22 00:08 → OBSVTOIN 07-22 16:41
PROVIDERS: ADMIT Internal Medicine; ATTEND Internal Medicine
PROC: 0M9N0ZX Drainage of Right Knee Bursa and Ligament, Open Approach, Diagnostic (ICD-10-PCS; principal; 2017-07-25 12:48)
DX: M71.161 Other infective bursitis, right knee (principal); L03.115 Cellulitis of right lower limb; B95.61 Methicillin susceptible Staphylococcus aureus infection as the cause of diseases classified elsewhere; I10 Essential (primary) hypertension; F20.9 Schizophrenia, unspecified; E86.0 Dehydration; E87.6 Hypokalemia; R62.50 Unspecified lack of expected normal physiological development in childhood; F41.9 Anxiety disorder, unspecified; F31.9 Bipolar disorder, unspecified
CPT/HCPCS: 73723; 80048; 80053; 80202; 81001; 83605; 85025; 85027; 85610; 85730; 86140; 86403; 87015; 87040; 87070; 87102; 87116; 87147; 87186; 87205; 87206; 93005; 94150; 96365; 96367; A9579; G8987-GP; G8988-GP; J0690; J1580; J1644; J1650; J1885; J2270; J2370; J2405; J2543; J3010; J3370; J7030; J7050; J7120

== ENCOUNTER 2017-09-18 18:50 | Emergency (ER) | payer MEDICARE, OTHER ==
[~2017-09-18] VITALS: Ht 182.9 cm; Wt 75.0 kg
[~2017-09-18 18:50] MED LIST changes: +BACT800T5 PO; -CLON0.1T PO; +LACTCHW3 CHEW; +LEVA750T9 PO
[2017-09-18 18:52] VITALS: BP 145/84; PULSE 95; RESP 19; TEMP 97.4; O2SAT 98
--- NOTE | 2017-09-18 19:11 | PD ---
HPI Chief Complaint: Pain: Acute or Chronic Time Seen by Provider: 19:05 Travel History International Travel<30 days: No Contact w/Intl Traveler<30days: No Traveled to known affect area: No History of Present Illness HPI Patient is a 57-year-old male presenting to the emergency department for evaluation of a wound to his right knee after sustaining a mechanical fall earlier this afternoon. 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 She states that he fell onto his right knee, there had been a scab that was white in color prior to the fall after the fall he has had some bleeding and the scab is not red. Patient is ambulatory, she states that he has not been complaining of pain. She does report that he had a previous I&D to that in the last month to an abscess. Patient is followed by Dr. Funk, he will see him tomorrow. Symptom onset was sudden, symptoms are mild in nature. There was no head injury or loss of consciousness. PFSH Past Medical History ADD: Yes Asthma: No Blood Disorders: No Bipolar Disorder: Yes Anxiety: Yes (pensive speaking) Depression: No Heart Rhythm Problems: No Cancer: No Cardiovascular Problems: Yes (currently with cellulitis of the right leg and knee) High Cholesterol: No Chemotherapy: No Chest Pain: No Congestive Heart Failure: No COPD: No Developmental Delay: Yes Diabetes: No Diminished Hearing: No Endocrine: No Genitourinary: No Hypertension: Yes Immune Disorder: No Musculoskeletal: Yes (weakness) Neurologic: Yes (developemental delay) Psychiatric: Yes (developemental delay, repetative speaking and requesting of items) Reproductive: No Respiratory: No Radiation Therapy: No Schizophrenia: Yes Sleep Apnea: No Thyroid Disease: No Past Surgical History Abdominal Surgery: Yes (HERNIA) Eye Surgery: Yes (RIGHT EYE CATARACT) Social History Alcohol Use: No Tobacco Use: No Substance Use: No Allergies-Medications (Allergen,Severity, Reaction): Coded Allergies: No Known Allergies (Verified Allergy, Unknown, 09/18/17) Reported Meds & Prescriptions Reported Meds & Active Scripts Active Lactinex (Lactobacillus Acidophilus) 1 Chew 1 Tab CHEW TID 21 Days Levaquin (Levofloxacin) 750 Mg Tablet 750 Mg PO DAILY 21 Days Bactrim DS (Sulfamethoxazole-Trimethoprim) 800-160 Mg Tab 1 Tab PO BID 21 Days Reported Bisacodyl EC (Bisacodyl) 5 Mg Tabec 5 Mg PO DAILY PRN Lorazepam 1 Mg Tab 1 Mg PO DAILY PRN Seroquel (Quetiapine Fumarate) 100 Mg Tab 100 Mg PO BID Depakote ER (Divalproex Sodium) 500 Mg Kelin 500 Mg PO BID Chlorpromazine (Chlorpromazine HCl) 200 Mg Tab 200 Mg PO BID PRN Buspirone (Buspirone HCl) 30 Mg Tab 30 Mg PO TID Risperidone 4 Mg Tab 4 Mg PO TID Claritin (Loratadine) 10 Mg Cap 10 Mg PO DAILYHS Simvastatin 20 Mg Tab 20 Mg PO DAILYHS Lisinopril 5 Mg Tab 5 Mg PO DAILY Review of Systems Except as stated in HPI: all other systems reviewed are Neg Skin: Positive Lesions Physical Exam Narrative GENERAL: Well-developed, well-nourished, alert male. Presenting in no acute distress. SKIN: Warm and dry. 0.5 centimeter raised lesion to anterior right knee, pretibial. Superficial abrasions to anterior right knee. No erythema noted. HEAD: Normocephalic. EYES: No scleral icterus. No injection or drainage. NECK: Supple, trachea midline. No JVD or lymphadenopathy. CARDIOVASCULAR: Regular rate and rhythm without murmurs, gallops, or rubs. RESPIRATORY: Breath sounds equal bilaterally. No accessory muscle use. GASTROINTESTINAL: Abdomen soft, non-tender, nondistended. MUSCULOSKELETAL: No cyanosis, or edema. Full range of motion right knee, no edema noted. BACK: Nontender without obvious deformity. No CVA tenderness. Data Data Last Documented VS Vital Signs Date Time Temp Pulse Resp B/P (MAP) Pulse Ox O2 Delivery O2 Flow Rate FiO2 09/18/17 18:52 97.4 95 19 145/84 (104) 98 [facility] Medical Decision Making Medical Screen Exam Complete: Yes Emergency Medical Condition: Yes Medical Record Reviewed: Yes Interpretation(s) Vital Signs Date Time Temp Pulse Resp B/P (MAP) Pulse Ox O2 Delivery O2 Flow Rate FiO2 09/18/17 18:52 97.4 95 19 145/84 (104) 98 Differential Diagnosis Contusion versus effusion versus sprain versus strain versus less likely fracture versus other Narrative Course Patient is well-appearing 57-year-old male presenting for evaluation of right knee injury after sustaining a mechanical fall earlier. There is a scab to the anterior right knee, it had been there previously but after the accident the scab was dislodged. Patient is full range of motion, he is ambulatory without any gait abnormality. He has a follow-up appointment tomorrow with Dr. Funk. Wound was cleaned and dressed. Imaging will be deferred to orthopedics, patient is ambulatory with again no gait abnormality. He has full range of motion. Sheetfed Press Operator was encouraged to return to emergency department for any new or worsening symptoms. Patient stable for discharge. Diagnosis Primary Impression: Fall Qualified Codes: W19.XXXA - Unspecified fall, initial encounter Additional Impression: Knee abrasion Qualified Codes: S80.211A - Abrasion, right knee, initial encounter Referrals: Yuval Funk MD 1 day As scheduled Patient Instructions: Abrasion (ED), Fall Prevention (ED), General Instructions Additional Instructions: Follow-up with Dr. Funk tomorrow as scheduled Give [id number] ibuprofen or acetaminophen as needed and as directed for pain Apply cool compress to the affected area Keep wound covered with bandage Return to emergency department for any new or worsening symptoms Med/Other Pt SpecificInfo: No Change to Meds Disposition: 01 DISCHARGE HOME Condition: Stable Kylie Langford September 18, 2017 19:11
== END 2017-09-18 19:18 | disposition home or self-care (01) ==
LOC: NEPK 18:50
DX: S80.211A Abrasion, right knee, initial encounter (principal); I10 Essential (primary) hypertension; W19.XXXA Unspecified fall, initial encounter
CPT/HCPCS: 99282